=== PATIENT | male | born 1945 | race Caucasian/White ===

== ENCOUNTER 2020-09-17 19:05 | Inpatient (IN) | payer MEDICARE, OTHER ==
[~2020-09-17] VITALS: Ht 180.3 cm; Wt 97.6 kg
[2020-09-17 19:34] LABS: BASOPHILS % (AUTO) 0 % (0-10); EOSINOPHILS % (AUTO) 0 % (0-10); HEMATOCRIT 48 % (40-54); HEMOGLOBIN 14.8 G/DL (13.3-17.7); LYMPHOCYTES # (AUTO) 1.3 X 10^3 (1.0-4.0); LYMPHOCYTES % (AUTO) 12 % (12-44); MEAN CORPUSCULAR HEMOGLOBIN 29 PG (25-34); MEAN CORPUSCULAR HGB CONC 31 G/DL (32-36); MEAN CORPUSCULAR VOLUME 92 FL (80-99); MEAN PLATELET VOLUME 12.3 FL (7.4-10.4); MONOCYTES # (AUTO) 0.8 X 10^3 (0.0-1.0); MONOCYTES % (AUTO) 7 % (0-12); NEUTROPHILS % (AUTO) 80 % (42-75); WHITE BLOOD COUNT 11.2 10^3/uL (4.3-11.0)
--- NOTE | 2020-09-17 19:38 | ED Dyspnea ---
General Chief Complaint: Respiratory Problems Stated Complaint: SOA Source of Information: Patient, EMS History of Present Illness Date Seen by Provider: Sep 17, 2020 Time Seen by Provider: 19:05 Initial Comments 74-year-old male presenting from home by EMS after having increasing shortness of breath this afternoon. He has a history of COPD and emphysema and is oxygen dependent at home. He usually uses 2 L/min all the time however this afternoon that was not enough. He was working hard to breathe and felt more short of breath than normal. EMS was activated and on arrival they found him diaphoretic and pale working hard to breathe. They increased his oxygen up to 4 L/min and gave him a breathing treatment as well as 125 mg of Solu-Medrol IV. He feels like he has increased congestion to cough up but has not noticed any change in color to the congestion and phlegm. He denies any fever or chills. He has not been able to do his normal activities such as walking down the hallway to the bathroom without getting winded and out of breath. He denies any ill contacts or travel. Severity: Severe Activities at Onset: Activity (normal activities of walking down the hallway to the bathroom at home) Prior Episodes/Possible Cause: Chronic Episodes (chronic COPD) Modifying Factors: Worse With Activity; Improves With Oxygen, Improves With Rest Associated Symptoms: Anxiety, Chest Pain, Cough, Edema, Fever, Lightheadedness, Pain, Weakness (general), Wheezing Allergies and Home Medications Allergies Coded Allergies: Penicillins (Verified Allergy, Unknown, 09/17/20) Patient Home Medication List Home Medication List Reviewed: Yes Review of Systems Review of Systems Constitutional: No chills; diaphoresis (when he was working hard to breath on EMS arrival); No fever EENTM: No epistaxis, No nose congestion Respiratory: cough, dyspnea on exertion; No hemoptysis; short of breath; No stridor; wheezing Cardiovascular: No chest pain Gastrointestinal: No abdominal pain, No nausea, No vomiting Genitourinary: no symptoms reported Musculoskeletal: no symptoms reported Skin: No rash Psychiatric/Neurological: Anxiety Endocrine: No Symptoms Reported Hematologic/Lymphatic: No Symptoms Reported Past [id number] Hx Past Med/Social Hx: Reviewed Nursing Past Med/Soc Hx Patient Social History Alcohol Use: Denies Use Smoking Status: Former Smoker 2nd Hand Smoke Exposure: No Recent Hopitalizations: No Seasonal Allergies Seasonal Allergies: No Past Medical History Surgeries: Yes Orthopedic Respiratory: Yes COPD, Emphysema Cardiac: No Neurological: No Genitourinary: No Gastrointestinal: No Musculoskeletal: No Endocrine: No HEENT: No Cancer: No Psychosocial: No Integumentary: No Blood Disorders: No Physical Exam Vital Signs Vital Signs - First Documented 09/17/20 09/17/20 09/17/20 19:15 19:29 21:30 Temp 36.3 Pulse 110 Resp 20 B/P (MAP) 121/94 Pulse Ox 97 O2 Delivery Nasal Cannula O2 Flow Rate 4.00 Capillary Refill : Height, Weight, BMI Height: '" Weight: lbs. oz. 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) Neurologic/Psychiatric: Alert, Oriented x3, Normal Mood/Affect, motor tune up specialist II-XII Norm as Tested Skin: Normal Color, Warm/Dry Focused Exam Lactate Level 09/17/20 19:21: Lactic Acid Level 2.29*H Lactic Acid Level Laboratory Tests Test 09/17/20 19:21 Lactic Acid Level 2.29 MMOL/L (0.50-2.00) *H Progress/Results/Core Measures Results/Orders Lab Results Laboratory Tests Test 09/17/20 19:21 09/17/20 19:40 Range/Units White Blood Count 11.2 H 4.3-11.0 10^3/uL Red Blood Count 5.19 4.35-5.85 10^6/uL Hemoglobin 14.8 13.3-17.7 G/DL Hematocrit 48 40-54 % Mean Corpuscular Volume 92 80-99 FL Mean Corpuscular Hemoglobin 29 25-34 PG Mean Corpuscular Hemoglobin Concent 31 L 32-36 G/DL Red Cell Distribution Width 14.6 H 10.0-14.5 % Platelet Count 25 *L 130-400 10^3/uL Mean Platelet Volume 12.3 H 7.4-10.4 FL Immature Granulocyte % (Auto) 0 % Neutrophils (%) (Auto) 80 H 42-75 % Lymphocytes (%) (Auto) 12 12-44 % Monocytes (%) (Auto) 7 0-12 % Eosinophils (%) (Auto) 0 0-10 % Basophils (%) (Auto) 0 0-10 % Neutrophils # (Auto) 9.0 H 1.8-7.8 X 10^3 Lymphocytes # (Auto) 1.3 1.0-4.0 X 10^3 Monocytes # (Auto) 0.8 0.0-1.0 X 10^3 Eosinophils # (Auto) 0.0 0.0-0.3 10^3/uL Basophils # (Auto) 0.0 0.0-0.1 10^3/uL Immature Granulocyte # (Auto) 0.0 0.0-0.1 10^3/uL Neutrophils % (Manual) 82 % Lymphocytes % (Manual) 8 % Monocytes % (Manual) 8 % Eosinophils % (Manual) 1 % Basophils % (Manual) 1 % Platelet Estimate DECREASED Prothrombin Time 15.2 H 12.2-14.7 SEC INR Comment 1.2 0.8-1.4 Activated Partial Thromboplast Time 20 L 24-35 SEC Sodium Level 141 135-145 MMOL/L Potassium Level 4.7 3.6-5.0 MMOL/L Chloride Level 104 98-107 MMOL/L Carbon Dioxide Level 24 21-32 MMOL/L Anion Gap 13 5-14 MMOL/L Blood Urea Nitrogen 18 7-18 MG/DL Creatinine 1.06 0.60-1.30 MG/DL Estimat Glomerular Filtration Rate > 60 BUN/Creatinine Ratio 17 Glucose Level 164 H 70-105 MG/DL Lactic Acid Level 2.29 *H 0.50-2.00 MMOL/L Calcium Level 9.1 8.5-10.1 MG/DL Corrected Calcium 9.1 8.5-10.1 MG/DL Total Bilirubin 1.3 H 0.1-1.0 MG/DL Aspartate Amino Transf (AST/SGOT) 28 5-34 U/L Alanine Aminotransferase (ALT/SGPT) 18 0-55 U/L Alkaline Phosphatase 111 40-136 U/L Troponin I 0.91 *H <0.30 NG/ML C-Reactive Protein 1.17 H <0.50 MG/DL Pro-B-Type Natriuretic Peptide 2216.0 H <75.0 PG/ML Total Protein 6.9 6.4-8.2 GM/DL Albumin 4.0 3.2-4.5 GM/DL Blood Gas Puncture Site WRIST Blood Gas Patient Temperature 36.3 Arterial Blood pH 7.40 7.37-7.43 Arterial Blood Partial Pressure CO2 38 35-45 MMHG Arterial Blood Partial Pressure O2 137 H 79-93 MMHG Arterial Blood HCO3 24 23-27 MMOL/L Arterial Blood Total CO2 24.7 21.0-31.0 MMOL/L Arterial Blood Oxygen Saturation 99 94-100 % Arterial Blood Base Excess -1.1 -2.5-2.5 MMOL/L Randal Test NEGATIVE Blood Gas Ventilator Setting NO Blood Gas Inspired Oxygen 4 L My Orders Orders - MILLIE NEAL MD Monitor-Rhythm Ecg Trace Only (09/17/20 19:21) Cbc With Automated Diff (09/17/20 19:21) Comprehensive Metabolic Panel (09/17/20 19:21) Crp Fs (09/17/20 19:21) Troponin I Fs (09/17/20 19:21) Protime With Inr (09/17/20 19:21) Partial Thromboplastin Time (09/17/20 19:21) Ekg Tracing (09/17/20 19:21) Arterial Blood Gas (09/17/20 19:21) Blood Culture (09/17/20 19:21) Lactic Acid Analyzer (09/17/20 19:21) Chest 1 View Ap/Pa Only (09/17/20 19:21) O2 (09/17/20 19:21) Sputum Culture (09/17/20 19:25) Manual Differential (09/17/20 19:21) Aspirin Chewable Tablet (Baby Aspirin Ch (09/17/20 19:59) Ns Iv 1000 Ml (Sodium Chloride 0.9%) (09/17/20 19:59) Probnp Fs (09/17/20 20:28) Vital Signs/I&O 09/17/20 09/17/20 09/17/20 19:15 19:29 21:30 Temp 36.3 Pulse 110 101 Resp 20 18 B/P (MAP) 121/94 Pulse Ox 97 97 95 O2 Delivery Nasal Cannula Nasal Cannula Nasal Cannula O2 Flow Rate 4.00 4.00 4.00 Progress Progress Note #1: Progress Note Cardiac night monitor for tachycardia and shortness of breath to monitor his heart rate and rhythm. Obtain ECG, CXR, labs, blood cultures with lactic acid, ABG. Continue with supplemental oxygen at 4 Lpm. Progress Note #2: Time: :46 Progress Note Notified that labs show platelets are low at 25K. WBC 11.2, Hgb 14.8. ECG shows sinus tachycardia with old appearing Q waves and no prior tracings for comparison. CXR read as COPD changes without infiltrate. Progress Note #3: Time: :19 Progress Note lab shows elevated troponin to 0.91. He also has elevated Lactic acid to 2.29. The lactic acid is likely due to hyperventilating and dehydration. His troponin is likely due to stress and strain from COPD and increased work of breathing and episodes of hypoxia while working hard to breath as he has no know history of cardiac disease and was not having chest pain but only chest tightness from his COPD. Even though he has low platelets will give a single dose of Aspirin 324 mg po and check with pt to ensure he is ok with going to [facility] for care with [facility]. He stated he was ok with going to [place]. D/w Dr. Khan from Cardiology at 2019 and he agreed with consult and requested proBNP on patient as well as an Echocardiogram in am. He would like hematology to consult about the low platelets as he would not be a safe candidate for procedures until the platelets are over 100K. Thought of PE brought up but with him having ABG with normal pH 7.4, pCO2 40, pO2 137 on 4 Lpm it seemed like he was oxygenating well so will hold off on CT angiogram. He does not have risk factor for PE and with low platelet count if he did have a PE trying to treat one would be difficult as well. 2041 d/w Dr. Otoole for [facility] and will admit for COPD exacerbation and serial troponins. Consult Heme/Onc as well as Cardiology. Continue withi Solumedrol 125 mg IV q 8 hours for now and RT MAT protocol. Since he has thrombocytopenia will hold with the single dose of 324 mg aspirin given here in ED. Initial ECG Impression Date: Sep 17, 2020 Initial ECG Impression Time: 19:31 Initial ECG Rate: 111 Initial ECG Rhythm: S.Tach Initial ECG Comparisson: No Previous ECG Available Comment Sinus tachycardia with a heart rate of 111 bpm. ND interval [address] elevation. QT interval 353 ms with a QTc interval 480 ms. Old appearing Inferior and lateral Q waves. No prior tracings in the system for comparison. Diagnostic Imaging Diagonstic Imaging: Xray Plain Films/CT/US/NM/MRI: chest Comments NAME: CLAY BROOKS REC#: [id number] PT STATUS: REG ER : 1945 PHYSICIAN: MILLIE NEAL MD ADMIT DATE: 09/17/20/ER FS Draft Date of Exam:09/17/20 CHEST 1 VIEW AP/PA ONLY INDICATION: Shortness of breath. COMPARISON: None. EXAMINATION: Single view of the chest. FINDINGS: Hyperexpansion compatible with COPD. Otherwise, lungs are clear. The heart is normal. There is no pneumothorax but osseous structures are stable. IMPRESSION: COPD without infiltrate. Dictated on workstation # [id number] Dict: 09/17/201934 Trans: 09/17/201940 [facility] [id number] Interpreted by: REBEKA PIERCE Electronically signed by: Departure Communication (Admissions) Time/Spoke to Admitting Phy: 20:42 d/w Dr. Otoole for [facility] since pt follows with Dr. Vora. Will admit for COPD exacerbation and have Cardiology and Hematology consult along about elevated troponin and platelets. Since he has no infiltrate on CXR and no purulent sputum will hold off on antibiotics for now. Time/Spoke to Consulting Phy: 20:19 d/w Dr. Khan for Cardiology and will follow along but until platelets over 100K will need to hold off on any procedures. Impression Primary Impression: COPD with exacerbation Additional Impressions: Thrombocytopenia Non-STEMI (non-ST elevated myocardial infarction) Disposition: 30 STILL A PATIENT Condition: Stable Admissions Decision to Admit Reason: Admit from ER (General) Decision to Admit/Date: Sep 17, 2020 Time/Decision to Admit Time: 20:42 Departure-Patient Inst. Referrals: NO,LOCAL PHYSICIAN (PCP/Family) Primary Care Physician MILLIE NEAL MD Sep 17, 2020 19:38
--- NOTE | 2020-09-17 19:42 | Diagnostic Imaging Report ---
INDICATION: Shortness of breath. COMPARISON: None. EXAMINATION: Single view of the chest. FINDINGS: Hyperexpansion compatible with COPD. Otherwise, lungs are clear. The heart is normal. There is no pneumothorax but osseous structures are stable. IMPRESSION: COPD without infiltrate. Dictated by: Dictated on workstation # [id number]
[2020-09-17 19:43] LABS: PLATELET COUNT 25 10^3/uL (130-400)
[2020-09-17 19:47] LABS: INR 1.2 (0.8-1.4); PROTHROMBIN TIME PATIENT 15.2 SEC (12.2-14.7)
[2020-09-17 19:50] LABS: ABG BASE EXCESS -1.1 MMOL/L (-2.5-2.5); ABG OXYGEN SATURATION 99 % (94-100); ABG PCO2 38 MMHG (35-45); ABG PO2 137 MMHG (79-93); ABG TCO2 24.7 MMOL/L (21.0-31.0)
[2020-09-17 19:52] LABS: PATIENT TEMP 36.3; VENTILATOR NO
[2020-09-17 19:53] LABS: ALLENS TEST NEGATIVE; INSPIRED O2 4 L
[2020-09-17 19:54] LABS: CHLORIDE 104 MMOL/L (98-107); POTASSIUM 4.7 MMOL/L (3.6-5.0); SODIUM 141 MMOL/L (135-145)
[2020-09-17 19:55] LABS: ALANINE AMINOTRANSFERASE 18 U/L (0-55); ALKALINE PHOSPHATASE 111 U/L (40-136); BILIRUBIN,TOTAL 1.3 MG/DL (0.1-1.0); BUN/CREATININE RATIO 17; CALCIUM 9.1 MG/DL (8.5-10.1); CARBON DIOXIDE 24 MMOL/L (21-32); CREATININE SERUM 1.06 MG/DL (0.60-1.30); GFR ESTIMATED > 60; GLUCOSE 164 MG/DL (70-105)
[2020-09-17] MEDS ORDERED: POTA10TA36 PO (19:56)
[2020-09-17] MEDS ORDERED: LISI-729 PO (19:56)
[2020-09-17] MEDS ORDERED: GBPN600T PO (19:56)
[2020-09-17] MEDS ORDERED: ALBUTEROL (19:56)
[2020-09-17 19:58] LABS: TOTAL PROTEIN 6.9 GM/DL (6.4-8.2)
[2020-09-17] MEDS ORDERED: NS IV 1000 ML 1,000 ML IV STA (19:59)
[2020-09-17] MEDS ORDERED: ASPIRIN 81 MG CHEW (CHILDREN'S ASA) PO STA (19:59)
[2020-09-17 20:44] LABS: BASOPHILS % (MANUAL) 1 %; EOSINOPHILS % (MANUAL) 1 %; LYMPHOCYTES % (MANUAL) 8 %; MONOCYTES % (MANUAL) 8 %; NEUTROPHILS % (MANUAL) 82 %; PLATELET ESTIMATE DECREASED
[2020-09-18] MEDS: methylPREDNISolone 125 MG (Solu-MEDROL) VIAL IV SCH ×4 (00:39→23:28)
[2020-09-18] MEDS: NS IV 1000 ML 1,000 ML IV SCH ×3 (00:40→20:20)
[2020-09-18 01:28] VITALS: BP 106/76
[2020-09-18] MEDS ORDERED: RT-ALBUTEROL SULF 2.5 MG/3 ML PRE-MIX VIAL INH PRN (02:00)
[2020-09-18] MEDS: RT-ALBUTEROL SULF 2.5 MG/3 ML PRE-MIX VIAL INH SCH ×2 (02:46→06:40)
[2020-09-18 07:19] VITALS: BP 127/86
[2020-09-18 07:22] LABS: BASOPHILS % (AUTO) 0 % (0-10); EOSINOPHILS % (AUTO) 0 % (0-10); HEMATOCRIT 44 % (40-54); HEMOGLOBIN 13.3 g/dL (13.3-17.7); LYMPHOCYTES # (AUTO) 0.5 10^3/uL (1.0-4.0); LYMPHOCYTES % (AUTO) 7 % (12-44); MEAN CORPUSCULAR HEMOGLOBIN 28 pg (25-34); MEAN CORPUSCULAR HGB CONC 30 g/dL (32-36); MEAN CORPUSCULAR VOLUME 92 fL (80-99); MEAN PLATELET VOLUME 10.9 fL (9.0-12.2); MONOCYTES # (AUTO) 0.1 10^3/uL (0.0-1.0); MONOCYTES % (AUTO) 1 % (0-12); NEUTROPHILS # (AUTO) 7.7 10^3/uL (1.8-7.8); NEUTROPHILS % (AUTO) 92 % (42-75); PLATELET COUNT 163 10^3/uL (130-400); WHITE BLOOD COUNT 8.4 10^3/uL (4.3-11.0)
[2020-09-18 07:31] LABS: ALBUMIN 3.5 GM/DL (3.2-4.5); CHLORIDE 110 MMOL/L (98-107); POTASSIUM 4.5 MMOL/L (3.6-5.0); SODIUM 142 MMOL/L (135-145)
[2020-09-18 07:32] LABS: CALCIUM 8.3 MG/DL (8.5-10.1)
[2020-09-18 07:33] LABS: GLUCOSE 176 MG/DL (70-105); TOTAL PROTEIN 6.3 GM/DL (6.4-8.2)
[2020-09-18 07:34] LABS: CARBON DIOXIDE 20 MMOL/L (21-32)
[2020-09-18 07:35] LABS: BILIRUBIN,TOTAL 0.9 MG/DL (0.1-1.0)
[2020-09-18 07:37] LABS: ALKALINE PHOSPHATASE 91 U/L (40-136); CREATININE SERUM 1.03 MG/DL (0.60-1.30); GFR ESTIMATED > 60
[2020-09-18 07:38] LABS: BUN/CREATININE RATIO 19
[2020-09-18 07:40] LABS: ALANINE AMINOTRANSFERASE 21 U/L (0-55)
[2020-09-18 07:45] LABS: BAND NEUTROPHILS 1 %; LYMPHOCYTES % (MANUAL) 7 %; MONOCYTES % (MANUAL) 1 %; NEUTROPHILS % (MANUAL) 91 %
[2020-09-18 07:46] LABS: RBC MORPH NORMAL
[2020-09-18] MEDS: KCL 10 MEQ TAB (MICRO K) PO SCH ×3 (08:55→17:35)
[2020-09-18] MEDS: GABAPENTIN 600 MG (NEURONTIN) TAB PO SCH ×3 (08:55→20:19)
[2020-09-18] MEDS: lisINopril 5 MG (PRINIVIL) TABLET PO SCH (08:55)
[2020-09-18] MEDS: ENOXAPARIN 40 MG/0.4 ML (LOVENOX) SYR SC SCH (09:31)
--- NOTE | 2020-09-18 10:09 | History & Physical-Hospitalist ---
History of Present Illness HPI/Chief Complaint 74-year-old male presenting from home by EMS after having increasing shortness of breath this afternoon. He has a history of COPD and emphysema and is oxygen dependent at home. He usually uses 2 L/min all the time however this afternoon that was not enough. He was working hard to breathe and felt more short of breath than normal. EMS was activated and on arrival they found him diaphoretic and pale working hard to breathe. They increased his oxygen up to 4 L/min and gave him a breathing treatment as well as 125 mg of Solu-Medrol IV. He feels like he has increased congestion to cough up but has not noticed any change in color to the congestion and phlegm. He denies any fever or chills. He has not been able to do his normal activities such as walking down the hallway to the bathroom without getting winded and out of breath. He denies any ill contacts or travel. Upon my arrival the patient reports that his shortness of breath started about 48 hours prior and got progressively worse with wheezing. He had an associated cough that was productive at times for a little bit of frothy sputum without blood. He denied any purulent sputum production and denied chest pain but did note some audible wheezing. He increase his oxygen to 3 L which was only of minimal benefit and presented to the emergency room. He reports that he has not been around anybody about his cats at home with no known Covid exposure. Rapid Covid testing is negative in the emergency room.He reports no known history of heart disease states that his brother is living in his 80s and there is no family history of heart disease. He reports he quit smoking in 2003 after about 80+ pack year smoking history. He has not had any recent admissions for pneumonia but has had a fair number of COPD exacerbations over the last several years that have been handled by IM steroids and antibiotics per his report. Date Seen 09/18/20 Time Seen by a Provider: 07:30 Attending Physician Carlos Donato MD PCP Corona Vora MD Referring Physician Date of Admission Sep 17, 2020 at 22:25 Home Medications & Allergies Home Medications Reviewed patient Home Medication Reconciliation performed by pharmacy medication reconciliations boiler technician and/or nursing. Patients Allergies have been reviewed. Allergies Allergies Coded Allergies Penicillins (Verified Allergy, Unknown, 09/17/20) Past Nuubhkq-Vepvat-Brwgmm Hx Past Med/Social Hx: Reviewed Nursing Past Med/Soc Hx, Reviewed and Corrections made Patient Social History Alcohol Use: Denies Use Recreational Drug Use: No Smoking Status: Former Smoker 2nd Hand Smoke Exposure: No Recent Foreign Travel: No Contact w/other who traveled: No Recent Hopitalizations: No Recent Infectious Disease Expo: No Immunizations Up To Date Date of Influenza Vaccine: Apr 28, 2020 Seasonal Allergies Seasonal Allergies: No Past Medical History Surgeries: Abdominal, Gallbladder, Orthopedic History of Blood Disorders: No Review of Systems Constitutional: see HPI Physical Exam Physical Exam Vital Signs Vital Signs - First Documented 09/17/20 09/17/20 09/17/20 19:15 19:29 21:30 Temp 36.3 Pulse 110 Resp 20 B/P (MAP) 121/94 Pulse Ox 97 O2 Delivery Nasal Cannula O2 Flow Rate 4.00 Capillary Refill : Less Than 3 Seconds Height, Weight, BMI Height: '" Weight: lbs. oz. kg; 27.56 BMI Method: General Appearance: Mild Distress Neck: Other (Decreased range of motion of the neck reportedly at this patient's baseline however) Respiratory: Chest Non Tender, No Accessory Muscle Use, No Respiratory Distress, Other (Patient does have evidence for prolonged expiratory phase most comfortable sitting upright leaning forward in his bed. Diminished breath sounds throughout no wheezing rales or rhonchi noted.) Cardiovascular: Regular Rate, Rhythm, No Edema, No Gallop, No JVD, No Murmur (Heart sounds distant however), Normal Peripheral Pulses Gastrointestinal: Normal Bowel Sounds, No Organomegaly, No Pulsatile Mass, Non Tender, Soft Extremity: No Pedal Edema Results Results/Procedures Labs Laboratory Tests 09/17/20 19:21 09/18/20 07:12 Patient resulted labs reviewed. Assessment/Plan Admission Diagnosis A/P 1. Acute COPD exacerbation no evidence for infection. Elevated lactate likely due to hypoxemia from COPD exacerbation. Considering some frothy sputum and hypoxemia congestive heart failure is in the differential will obtain echocardiography for further investigation. Patient Covid negative. Patient appears to be rapid responder to steroids well give another dose of Solu-Medrol today and switch to prednisone in the morning. 2. Patient has had no evidence for bleeding with urgent serum platelet count in the mid 20s yesterday and 160 here compatible with pseudohyponatremia will initiate Lovenox for DVT prophylaxis 40 mg subcu daily. Admission Status: Inpatient Order (span 2 midnights) Reason for Inpatient Admission: See admission diagnosis. CARLOS DONATO MD Sep 18, 2020 10:09
[2020-09-18] MEDS: RT-ALBUTEROL/IPRATROPIUM 3 ML (DUONEB) VIAL INH SCH ×4 (10:30→22:40)
--- NOTE | 2020-09-18 13:48 | Consultation-Cardiology ---
HPI-Cardiology Cardiology Consultation: Date of Consultation 09/18/20 Date of Admission Attending Physician Adalberto Otoole MD Admitting Physician Corona Vora MD Consulting Physician Meenakshi KHAN MD HPI: Time Seen by a Provider: 13:44 Chief Complaint: shortness of breath this is an elderly gentleman who presents for worsening shortness of breath. He has history of oxygen dependent COPD. EMS found him in respiratory distress. He was given IV steroids. He denies any fever. He denies any chest pain. He does have significant past smoking history. Denies any significant cardiac history. Pertinent family history is negative. on my history, he is still short of breath and cannot lie flat. Review of Systems-Cardiology Review of Systems Constitutional: As described under HPI; No As described under HPI, No no symptoms reported, No chills, No fever, No lightheadedness Eyes: No As described under HPI, No no symptoms reported, No blindness, No blurred vision, No contact lenses, No drainage, No decreased acuity, No foreign body sensation, No pain, No vision change Ears/Nose/Throat: No As described under HPI, No no symptoms reported, No chronic hearing loss, No ear discharge, No ear pain, No nasal drainage, No ulcerations Respiratory: No no symptoms reported; As described under HPI; No As described under HPI, No cough; orthopnea; No shortness of breath, No SOB with excertion Cardiovascular: No no symptoms reported; As described under HPI; No As described under HPI, No chest pain, No edema, No irregular heart rate, No lightheadedness, No palpitations Gastrointestinal: No no symptoms reported, No As described under HPI, No abdomen distended, No abdominal pain, No blood streaked bowels, No constipation, No diarrhea, No nausea, No vomiting, No stool coloration changes Genitourinary: No As described under HPI, No burning, No dysuria, No discharge, No frequency, No flank pain, No hematuria, No urgency Skin: No rash, No skin related problems, No ulcerations Psychiatric/Neurological: No anxiety, No depression, No seizure, No focal weakness, No syncope Hematologic: No bleeding abnormalities SXR-Tzqqxz-Wzmriq Hx Patient Social History Smoking Status: Former Smoker 2nd Hand Smoke Exposure: No Have you traveled recently?: No Alcohol Use?: No Pt feels they are or have been: No Immunizations Up To Date Date of Influenza Vaccine: Apr 28, 2020 Past Medical History PMH As described under Assessment. Allergies and Home Medications Allergies Coded Allergies: Penicillins (Verified Allergy, Unknown, 09/17/20) Patient Home Medication List Home Medication List Reviewed: Yes Physical Exam-Cardiology Physical Exam Vital Signs/I&O 09/18/20 09/18/20 09/18/20 09/18/20 02:30 04:09 06:40 07:00 Temp 36.4 Pulse 87 82 Resp 22 B/P (MAP) 127/86 (100) Pulse Ox 96 94 96 O2 Delivery Nasal Cannula Nasal Cannula Nasal Cannula O2 Flow Rate 4.00 4.00 4.00 09/18/20 09/18/20 09/18/20 09/18/20 07:19 08:53 09:00 10:30 Temp 36.3 36.5 Pulse 96 96 Resp 26 B/P (MAP) 141/98 (112) Pulse Ox 96 96 96 98 O2 Delivery Nasal Cannula Nasal Cannula Nasal Cannula O2 Flow Rate 4.00 4.00 5.00 09/18/20 09/18/20 11:21 12:46 Temp 36.3 Pulse 90 90 Resp 20 B/P (MAP) 133/82 (99) Pulse Ox 96 O2 Delivery Nasal Cannula O2 Flow Rate 4.00 09/18/20 00:00 Intake Total 1000 ml Balance 1000 ml Capillary Refill : Less Than 3 Seconds Constitutional: appears stated age, apparent distress, well-developed, well- nourished HEENT: PERRL; No discharge; hearing is well preserved, oral hygience is good; No ulceration, No xanthelasmas are seen Neck: No carotid bruit; carotid pulses are 2 + bilaterally Respiratory: accessory muscle use, respiratory distress, other (decreased breath sounds bilaterally.) Cardiovascular: regular rate-rhythm, S1 and S2 Gastrointestinal: soft, audible bowel sounds; No spleenomegaly Rectal: deferred Extremities: normal range of motion, non-tender, normal inspection; No clubbing, No cyanosis; no lower extremity edema bilateral; No significant edema Neurologic/Psychiatric: no motor/sensory deficits, alert, normal mood/affect, oriented x 3, power is 5/5 both on sides Skin: normal color; No rash, No ulcerations Data Review Labs Laboratory Tests 09/17/20 19:21: White Blood Count 11.2H, Red Blood Count 5.19, Hemoglobin 14.8, Hematocrit 48, Mean Corpuscular Volume 92, Mean Corpuscular Hemoglobin 29, Mean Corpuscular Hemoglobin Concent 31L, Red Cell Distribution Width 14.6H, Platelet Count 25*L, Mean Platelet Volume 12.3H, Immature Granulocyte % (Auto) 0, Neutrophils (%) (Auto) 80H, Lymphocytes (%) (Auto) 12, Monocytes (%) (Auto) 7, Eosinophils (%) (Auto) 0, Basophils (%) (Auto) 0, Neutrophils # (Auto) 9.0H, Lymphocytes # (Auto) 1.3, Monocytes # (Auto) 0.8, Eosinophils # (Auto) 0.0, Basophils # (Auto) 0.0, Immature Granulocyte # (Auto) 0.0, Neutrophils % (Manual) 82, Lymphocytes % (Manual) 8, Monocytes % (Manual) 8, Eosinophils % (Manual) 1, Basophils % (Manual) 1, Platelet Estimate DECREASED, Prothrombin Time 15.2H, INR Comment 1.2, Activated Partial Thromboplast Time 20L, Sodium Level 141, Potassium Level 4.7, Chloride Level 104, Carbon Dioxide Level 24, Anion Gap 13, Blood Urea Nitrogen 18, Creatinine 1.06, Estimat Glomerular Filtration Rate > 60, BUN/Creatinine Ratio 17, Glucose Level 164H, Lactic Acid Level 2.29*H, Calcium Level 9.1, Corrected Calcium 9.1, Total Bilirubin 1.3H, Aspartate Amino Transf (AST/SGOT) 28, Alanine Aminotransferase (ALT/SGPT) 18, Alkaline Phosphatase 111, Troponin I 0.91*H, C-Reactive Protein 1.17H, Pro-B-Type Natriuretic Peptide 2216.0H, Total Protein 6.9, Albumin 4.0 09/17/20 19:40: Blood Gas Puncture Site WRIST, Blood Gas Patient Temperature 36.3, Arterial Blood pH 7.40, Arterial Blood Partial Pressure CO2 38, Arterial Blood Partial Pressure O2 137H, Arterial Blood HCO3 24, Arterial Blood Total CO2 24.7, Arterial Blood Oxygen Saturation 99, Arterial Blood Base Excess -1.1, Randal Test NEGATIVE, Blood Gas Ventilator Setting NO, Blood Gas Inspired Oxygen 4 L 09/17/20 23:50: Coronavirus 2019 ([facility]) Negative 09/17/20 23:54: Lactic Acid Level 2.35*H, Troponin I 0.732*H 09/18/20 02:50: Lactic Acid Level 2.54*H, Troponin I 0.602*H 09/18/20 07:12: Lactic Acid Level 1.55, White Blood Count 8.4, Red Blood Count 4.80, Hemoglobin 13.3, Hematocrit 44, Mean Corpuscular Volume 92, Mean Corpuscular Hemoglobin 28, Mean Corpuscular Hemoglobin Concent 30L, Red Cell Distribution Width 14.3, Platelet Count 163, Mean Platelet Volume 10.9, Immature Granulocyte % (Auto) 1, Neutrophils (%) (Auto) 92H, Lymphocytes (%) (Auto) 7L, Monocytes (%) (Auto) 1, Eosinophils (%) (Auto) 0, Basophils (%) (Auto) 0, Neutrophils # (Auto) 7.7, Lymphocytes # (Auto) 0.5L, Monocytes # (Auto) 0.1, Eosinophils # (Auto) 0.0, Bas ophils # (Auto) 0.0, Immature Granulocyte # (Auto) 0.0, Neutrophils % (Manual) 91, Lymphocytes % (Manual) 7, Monocytes % (Manual) 1, Band Neutrophils 1, Blood Morphology Comment NORMAL, Sodium Level 142, Potassium Level 4.5, Chloride Level 110H, Carbon Dioxide Level 20L, Anion Gap 12, Blood Urea Nitrogen 20H, Creatinine 1.03, Estimat Glomerular Filtration Rate > 60, BUN/Creatinine Ratio 19, Glucose Level 176H, Calcium Level 8.3L, Corrected Calcium 8.7, Total Bilirubin 0.9, Aspartate Amino Transf (AST/SGOT) 22, Alanine Aminotransferase (ALT/SGPT) 21, Alkaline Phosphatase 91, Total Protein 6.3L, Albumin 3.5 A/P-Cardiology Assessment/Admission Diagnosis Acute respiratory failure, severe COPD with exacerbation, Positive cardiac enzymes, Elevated BNP Plan Acute respiratory failure, severe COPD with exacerbation, defer to the primary team. Positive cardiac enzymes, treat as non-STEMI with aspirin, low molecular weight heparin. Add Plavix. Echocardiogram. Patient cannot lie flat, coronary angiography when more stable. Elevated BNP Thank you for your consultation. Please call me if you have any questions. Caleb Khan MD, FACP, FACC, FSCAI, FHRS, CCDS Interventional Cardiology Cardiac Electrophysiology Vascular Medicine and Endovascular Interventions Meenakshi KHAN MD Sep 18, 2020 13:48
[2020-09-18] MEDS: ASPIRIN E.C. 325 MG (ECOTRIN) TABLET PO PRN ×2 (15:48→23:25)
[2020-09-18] MEDS ORDERED: LOPERAMIDE 2 MG (IMODIUM) TABLET PO PRN (17:45)
[2020-09-18] MEDS ORDERED: LOPERAMIDE 2 MG (IMODIUM) TABLET PO ONE (17:45)
[2020-09-19] MEDS: RT-ALBUTEROL/IPRATROPIUM 3 ML (DUONEB) VIAL INH SCH ×6 (02:35→22:13)
[2020-09-19] MEDS: NS IV 1000 ML 1,000 ML IV SCH (06:01)
[2020-09-19] MEDS: methylPREDNISolone 125 MG (Solu-MEDROL) VIAL IV SCH ×3 (08:40→23:57)
[2020-09-19] MEDS: lisINopril 5 MG (PRINIVIL) TABLET PO SCH (08:40)
[2020-09-19] MEDS: CLOPIDOGREL 75 MG (PLAVIX) TABLET PO SCH (08:40)
[2020-09-19] MEDS: GABAPENTIN 600 MG (NEURONTIN) TAB PO SCH ×3 (08:40→20:54)
[2020-09-19] MEDS: KCL 10 MEQ TAB (MICRO K) PO SCH ×2 (08:40→18:13)
[2020-09-19] MEDS: ENOXAPARIN 40 MG/0.4 ML (LOVENOX) SYR SC SCH (08:41)
[2020-09-19 09:48] LABS: BASOPHILS % (AUTO) 0 % (0-10); EOSINOPHILS % (AUTO) 0 % (0-10); HEMATOCRIT 42 % (40-54); HEMOGLOBIN 12.8 g/dL (13.3-17.7); LYMPHOCYTES # (AUTO) 0.4 10^3/uL (1.0-4.0); LYMPHOCYTES % (AUTO) 3 % (12-44); MEAN CORPUSCULAR HEMOGLOBIN 28 pg (25-34); MEAN CORPUSCULAR HGB CONC 30 g/dL (32-36); MEAN CORPUSCULAR VOLUME 92 fL (80-99); MEAN PLATELET VOLUME 10.7 fL (9.0-12.2); MONOCYTES # (AUTO) 0.6 10^3/uL (0.0-1.0); MONOCYTES % (AUTO) 5 % (0-12); NEUTROPHILS # (AUTO) 11.4 10^3/uL (1.8-7.8); NEUTROPHILS % (AUTO) 91 % (42-75); PLATELET COUNT 160 10^3/uL (130-400); WHITE BLOOD COUNT 12.5 10^3/uL (4.3-11.0)
[2020-09-19 10:10] LABS: ALBUMIN 3.3 GM/DL (3.2-4.5); BILIRUBIN,TOTAL 0.5 MG/DL (0.1-1.0); CALCIUM 8.5 MG/DL (8.5-10.1); CREATININE SERUM 1.2 MG/DL (0.60-1.30); TOTAL PROTEIN 5.9 GM/DL (6.4-8.2)
--- NOTE | 2020-09-19 10:11 | Cardiology Progress Note ---
Subjective Date Seen by Provider: Sep 19, 2020 Time Seen by Provider: 10:09 Subjective/Events-last exam Patient is laying down in bed, still having some shortness of breath but reporting improvement, denied any chest pain Review of Systems General: No Chills, No Night Sweats; Fatigue; No Malaise, No Appetite, No Other HEENT: No Head Aches, No Visual Changes, No Eye Pain, No Ear Pain, No Dysphasia, No Sinus Congestion, No Post Nasal Drip, No Sore Throat, No Other Pulmonary: Dyspnea, Cough; No Pleuritic Chest Pain, No Other Cardiovascular: No: Chest Pain, Palpitations, Orthopnea, Paroxysmal Noc. Dyspnea, Edema, Lt Headedness, Other Focused Exam Lactate Level 09/17/20 23:54: Lactic Acid Level 2.35*H 09/18/20 02:50: Lactic Acid Level 2.54*H 09/18/20 07:12: Lactic Acid Level 1.55 Objective-Cardiology Exam Last Set of Vital Signs Vital Signs 09/19/20 08:00 Temp 36.4 Pulse 97 Resp 18 B/P (MAP) 126/80 (95) Pulse Ox 96 O2 Delivery Nasal Cannula O2 Flow Rate 2.00 Capillary Refill : Less Than 3 Seconds I&O Intake and Output 09/18/20 23:59 Intake Total 1675 ml Output Total 700 ml Balance 975 ml Intake Oral 675 ml IV Total 1000 ml Output Urine Total 700 ml General: Alert, Oriented X3, Cooperative HEENT: Atraumatic, PERRLA Neck: Supple, No JVD, No Thyromegaly Lungs: Normal Air Movement, Other (bilateral rhonchi) Heart: Regular Rate, Normal S1, Normal S2, No Murmurs Abdomen: Normal Bowel Sounds, Soft, No Tenderness, No Hepatosplenomegaly, No Masses Extremities: No Clubbing, No Cyanosis, No Edema, Normal Pulses, No Tenderness/Swelling Skin: No Rashes, No Breakdown, No Significant Lesion Neuro: Normal Gait, Normal Speech, Strength at 5/5 X4 Ext, Normal Tone, Sensation Intact Psych/Mental Status: Mental Status NL, Mood NL Results Lab Laboratory Tests 09/19/20 09:45 A/P-Cardiology Admission Diagnosis Acute exacerbation of COPD Acute respiratory failure Type II myocardial infarction Hypertension Assessment/Plan Acute exacerbation of COPD, acute respiratory failure, improving, history of oxygen dependency at home using 2 L nasal cannula, the management by primary care physician Mild elevation in troponin, probably type II myocardial infarction secondary to severe hypoxemia. Maintained on Lovenox and Plavix. Discussed with the patient the management plan recommended risk stratification in the future as an outpatient once he is more stable, we'll consider stress testing versus cardiac catheterization in the future. Thrombocytopenia, probably secondary to lab error, repeat CBC showed normal platelets Hypertension, maintained on lisinopril Okay for discharge from cardiology standpoint, arrange for follow-up as an outpatient DAYAMI MCCABE MD Sep 19, 2020 10:11
--- NOTE | 2020-09-19 11:59 | Progress Note - Hospitalist ---
TRISTEN SALDANA MED STUDENT 09/19/20 1158: Subjective HPI/CC On Admission 74-year-old male presenting from home by EMS after having increasing shortness of breath this afternoon. He has a history of COPD and emphysema and is oxygen dependent at home. He usually uses 2 L/min all the time however this afternoon that was not enough. He was working hard to breathe and felt more short of breath than normal. EMS was activated and on arrival they found him diaphoretic and pale working hard to breathe. They increased his oxygen up to 4 L/min and gave him a breathing treatment as well as 125 mg of Solu-Medrol IV. He feels like he has increased congestion to cough up but has not noticed any change in color to the congestion and phlegm. He denies any fever or chills. He has not been able to do his normal activities such as walking down the hallway to the bathroom without getting winded and out of breath. He denies any ill contacts or travel. Upon my arrival the patient reports that his shortness of breath started about 48 hours prior and got progressively worse with wheezing. He had an associated cough that was productive at times for a little bit of frothy sputum without blood. He denied any purulent sputum production and denied chest pain but did note some audible wheezing. He increase his oxygen to 3 L which was only of minimal benefit and presented to the emergency room. He reports that he has not been around anybody about his cats at home with no known Covid exposure. Rapid Covid testing is negative in the emergency room.He reports no known history of heart disease states that his brother is living in his 80s and there is no family history of heart disease. He reports he quit smoking in 2003 after about 80+ pack year smoking history. He has not had any recent admissions for pneumonia but has had a fair number of COPD exacerbations over the last several years that have been handled by IM steroids and antibiotics per his report. Subjective/Events-last exam The pt complained of a cough today more so than yesterday but denied any phlegm. He denied any N/V. His last BM was before being admitted and was diarrhea like. He uses a catheter and reported not difficulty but would like it removed due to discomfort and pain. He has ambulated once. He wanted to know when he could be discharged. Labs were ordered for this morning, results pending. Review of Systems Pulmonary: Cough Gastrointestinal: No: Nausea, Vomiting Focused Exam Lactate Level 09/17/20 23:54: Lactic Acid Level 2.35*H 09/18/20 02:50: Lactic Acid Level 2.54*H 09/18/20 07:12: Lactic Acid Level 1.55 Objective Exam Vital Signs Vital Signs Date Time Temp Pulse Resp B/P (MAP) Pulse Ox O2 Delivery O2 Flow Rate FiO2 09/19/20 11:00 93 Nasal Cannula 2.00 09/19/20 08:00 36.4 97 18 126/80 (95) Capillary Refill : Less Than 3 Seconds General Appearance: No Apparent Distress, WD/WN Respiratory: Chest Non Tender, Lungs Clear, Normal Breath Sounds, No Accessory Muscle Use, No Respiratory Distress Cardiovascular: Regular Rate, Rhythm Back: Other (flaking of skin) Neurologic/Psychiatric: Alert, Oriented x3, Normal Mood/Affect Skin: Other (flaking of skin on back) Results/Procedures Lab Laboratory Tests 09/19/20 09:45 Patient resulted labs reviewed. Assessment/Plan Assessment and Plan Assess & Plan/Chief Complaint 1. COPD exacerbation without infection - on prednisone 2. positive cardiac markers - followed by cardiology. on ASA, LMWH, and plavix. Diagnosis/Problems Diagnosis/Problems (1) Non-STEMI (non-ST elevated myocardial infarction) Status: Acute (2) COPD with exacerbation Status: Acute ESTHELA HERNANDEZ DO 09/20/20 0539: Subjective HPI/CC On Admission Date Seen by Provider: Sep 19, 2020 Time Seen by Provider: 10:00 Subjective/Events-last exam Pt doing a little better today Elevated troponin pt on Aspirin, Plavix, and Lovenox Two liters of home O2 on a chronic basis Stopped smoking in 2003 but now has exacerbation of COPD Labs ordered and I did review those Rivera cath will be discontinued along with heplocking IV fluid PT, OT and Rehab eval Review of Systems General: Fatigue Objective Exam General Appearance: No Apparent Distress, WD/WN, Chronically ill Respiratory: Accessory Muscle Use, Decreased Breath Sounds Cardiovascular: Regular Rate, Rhythm Assessment/Plan Assessment and Plan Assess & Plan/Chief Complaint Assessment: AECOPD Weakness Type 2 ND HTN O2 dependency Plan: Monitor O2 Supportive care IRF PT OT Supervisory-Addendum Brief Verification & Attestation Participated in pt care: history, MDM, physical Personally performed: exam, history, MDM, supervision of care Care discussed with: Medical Student Procedures: n/a Results interpretation: Verified all documentation Verification and Attestation of Medical Student E/M Service A medical student performed and documented this service in my presence. I reviewed and verified all information documented by the medical student and made modifications to such information, when appropriate. I personally performed the physical exam and medical decision making. Esthela Hernandez, Sep 20, 2020,05:39 TRISTEN SALDANA MED STUDENT Sep 19, 2020 11:58 ESTHELA HERNANDEZ DO Sep 20, 2020 05:39
[2020-09-19 12:00] VITALS: BP 126/80
[2020-09-19] MEDS ORDERED: RT-ALBUTEROL/IPRATROPIUM 3 ML (DUONEB) VIAL INH PRN (12:00)
--- NOTE | 2020-09-19 13:05 | Physical Therapy Evaluation ---
PT Evaluation-General Medical Diagnosis Admission Date Sep 17, 2020 at 22:25 Medical Diagnosis: COPD exacerbation Onset Date: Sep 17, 2020 Therapy Diagnosis Therapy Diagnosis: impaired mobility, strength, endurance Precautions Precautions/Isolations: Fall Prevention, Standard Precautions Referral Physician: Esthela Monge DO Reason for Referral: Evaluation/Treatment Medical History Pertinent Medical History: COPD Reviewed History: Yes Social History Home: Single Level Current Living Status: Alone Entry Into Home: Ramp Prior Prior Level of Function SCALE: Activities may be completed with or without assistive devices. 3-Acjhobqrdw-hexfpkc completes the activity by him/herself with no assistance from a helper. 5-Set-up or Clean-up Assistance-helper sets up or cleans up; patient completes activity. [place] assists only prior to or following the activity. 4-Supervision or Touching Assistance-helper provides verbal cues and/or touching/steadying and/or contact guard assistance as patient completes activ ity. Assistance may be provided throughout the activity or intermittently. 3-Partial/Moderate Assistance-helper does LESS THAN HALF the effort. [place] lifts, holds or supports trunk or limbs, but provides less than half the effort. 2-Substantial/Maximal Assistance-helper does MORE THAN HALF the effort. [place] lifts or holds trunk or limbs and provides more than half the effort. 4-Olqfbxcse-ewfmdw does ALL the effort. Patient does none of the effort to complete the activity. Or, the assistance of 2 or more helpers is required for the patient to complete the activity. If activity was not attempted, code reason: 7-Patient Refused. 9-Not Applicable-not attempted and the patient did not perform the activity before the current illness, exacerbation or injury. 10-Not Attempted due to Environmental Limitations-(lack of equipment, weather restraints, etc.). 88-Not Attempted due to Medical Conditions or Safety Concerns. Bed Mobility: 6 Transfers (B,C,W/C): 6 Gait: 6 Indoor Mobility (Ambulation): Independent Patient states he used a quad cane previously PT Evaluation-Current Subjective Patient in bed pre tx, agrees to PT, has no complaints of pain. Pt/Family Goals to be independent at home Objective Patient Orientation: Person, Place, Situation Attachments: Oxygen ROM/Strength ROM Lower Extremities WNL Strength Lower Extremities LLE (hip flexion 3/5, knee flexion 3+/5, knee extension 4/5, dorsiflexion 4+/5), RLE (hip flexion 3/5, knee flexion 3+/5, knee extension 4/5, dorsiflexion 4+/5) Sensory Hearing: Functional Sensation Right Lower Extremit: Intact Sensation Left Lower Extremity: Intact Transfers Roll Left to Right (QC): 6 Lying to Sitting/Side of Bed(Q: 4 Sit to Stand (QC): 4 Chair/Swu-nw-Nkdei Xfer(QC): 4 CGA for supine to sit and sit to stand Gait Does the Patient Walk?: Yes Mode of Locomotion: Walk Anticipated Mode of Locomotion: Walk Walk 10 feet (QC): 4 Walk 50 ft with 2 Turns(QC): 4 Walk 150 ft (QC): 88 Walking 10ft/uneven surface-QC: 88 Distance: 50'x2 Gait Assistive Device: FWW Comments/Gait Description slow but steady ambulation, patient takes significant rest break after ambulating about 50', leans against the wall, then ambulates back. Balance Sitting Static: Normal Sitting Dynamic: Normal Standing Static: Good Standing Dynamic: Fair Assessment/Needs Patient has impaired mobility, strength, endurance. Patient in recliner post tx with nurse call, phone, tray. Patient wanted to sit in recliner so he could eat his lunch that came while he was ambulating. Patient needs CGA during ambulation and transfers. Rehab Potential: Fair PT Correction Goals Correction Goals PT Postdoctoral Fellow Goals Time Frame: Sep 26, 2020 Roll Left & Right (QC): 6 Sit to Lying (QC): 6 Lying-Sitting on Side/Bed(QC): 6 Sit to Stand (QC): 6 Chair/Kfu-bd-Hviki Xfer(QC): 6 Walk 10 feet (QC): 6 Walk 50ft with 2 Turns (QC): 6 PT Plan Problem List Problem List: Activity Tolerance, Functional Strength, Safety, Balance, Gait, Transfer, Bed Mobility, ROM Treatment/Plan Treatment Plan: Continue Plan of Care Treatment Plan: Bed Mobility, Education, Functional Activity [place], Functional Strength, Gait, Safety, Therapeutic Exercise, Transfers Treatment Duration: Sep 26, 2020 Frequency: 6 times per week Estimated Hrs Per Day: .25 hour per day Patient and/or Family Agrees t: Yes Safety Risks/Education Patient Education: Gait Training, Transfer Techniques, Correct Positioning, Safety Issues Teaching Recipient: Patient Teaching Methods: Demonstration, Discussion Response to Teaching: Reinforcement Needed Discharge Recommendations Plan Patient will perform bed mobility and transfer training, balance and endurance training, functional strengthening, stair training, gait training, and education, to improve functional mobility and independence at home. Therapy Discharge Recommendati: Scheduled Assistance, Home & Family Time/GCodes Time In: 1120 Time Out: 1150 Total Billed Treatment Time: 30 Total Billed Treatment 1 visit EVL 15' GT 30' WESLEY WARD PT Sep 19, 2020 13:05
[2020-09-19] MEDS ORDERED: SAW/1TAB2 PO (13:18)
[2020-09-19] MEDS ORDERED: CALC-250 PO (13:18)
[2020-09-19] MEDS ORDERED: MAGN400T39 PO (13:18)
[2020-09-19] MEDS ORDERED: OMEP20TA7 PO (13:18)
[2020-09-19] MEDS ORDERED: RT-ALBUINH INH (13:18)
[2020-09-19] MEDS ORDERED: FLUT1BLS IH (13:18)
[2020-09-19] MEDS ORDERED: ASPI-808 PO (13:18)
[2020-09-19] MEDS ORDERED: CYAN250T PO (13:18)
[2020-09-19] MEDS ORDERED: ASPI-1238 PO (13:58)
[2020-09-19] MEDS ORDERED: SAW450CA7 PO (13:58)
[2020-09-19] MEDS ORDERED: MEMORY VITAMIN PO (14:05)
[2020-09-19] MEDS ORDERED: COGNIUM PO (14:05)
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
[2020-09-19] MEDS: ASPIRIN E.C. 325 MG (ECOTRIN) TABLET PO PRN ×2 (16:18→21:53)
[2020-09-20] MEDS: RT-ALBUTEROL/IPRATROPIUM 3 ML (DUONEB) VIAL INH SCH ×6 (02:04→21:29)
[2020-09-20 04:41] LABS: BASOPHILS % (AUTO) 0 % (0-10); EOSINOPHILS % (AUTO) 0 % (0-10); HEMATOCRIT 42 % (40-54); HEMOGLOBIN 12.9 g/dL (13.3-17.7); LYMPHOCYTES # (AUTO) 0.3 10^3/uL (1.0-4.0); LYMPHOCYTES % (AUTO) 3 % (12-44); MEAN CORPUSCULAR HEMOGLOBIN 28 pg (25-34); MEAN CORPUSCULAR HGB CONC 31 g/dL (32-36); MEAN CORPUSCULAR VOLUME 91 fL (80-99); MEAN PLATELET VOLUME 10.8 fL (9.0-12.2); MONOCYTES # (AUTO) 0.4 10^3/uL (0.0-1.0); MONOCYTES % (AUTO) 4 % (0-12); NEUTROPHILS # (AUTO) 10.2 10^3/uL (1.8-7.8); NEUTROPHILS % (AUTO) 93 % (42-75); PLATELET COUNT 140 10^3/uL (130-400)
[2020-09-20 04:51] LABS: ALBUMIN 3.4 GM/DL (3.2-4.5)
[2020-09-20 04:53] LABS: CALCIUM 8.3 MG/DL (8.5-10.1)
[2020-09-20 04:56] LABS: BILIRUBIN,TOTAL 0.4 MG/DL (0.1-1.0)
[2020-09-20 04:57] LABS: CREATININE SERUM 1.25 MG/DL (0.60-1.30)
[2020-09-20] MEDS: ENOXAPARIN 40 MG/0.4 ML (LOVENOX) SYR SC SCH (08:23)
[2020-09-20] MEDS: methylPREDNISolone 125 MG (Solu-MEDROL) VIAL IV SCH ×2 (08:23→16:33)
[2020-09-20] MEDS: CLOPIDOGREL 75 MG (PLAVIX) TABLET PO SCH (08:24)
[2020-09-20] MEDS: GABAPENTIN 600 MG (NEURONTIN) TAB PO SCH ×3 (08:24→22:49)
[2020-09-20] MEDS: lisINopril 5 MG (PRINIVIL) TABLET PO SCH (08:24)
[2020-09-20] MEDS: KCL 10 MEQ TAB (MICRO K) PO SCH ×2 (08:24→17:23)
--- NOTE | 2020-09-20 09:56 | Physical Therapy Daily Note ---
PT Daily Note-Current Subjective Patient agrees to PT. He reports he want to go home. Mental Status Patient Orientation: Normal For Age Attachments: Oxygen Transfers SCALE: Activities may be completed with or without assistive devices. 7-Ttweqgusvo-zmvcbje completes the activity by him/herself with no assistance from a helper. 5-Set-up or Clean-up Assistance-helper sets up or cleans up; patient completes activity. [place] assists only prior to or following the activity. 4-Supervision or Touching Assistance-helper provides verbal cues and/or touching/steadying and/or contact guard assistance as patient completes activity. Assistance may be provided throughout the activity or intermittently. 3-Partial/Moderate Assistance-helper does LESS THAN HALF the effort. [place] lifts, holds or supports trunk or limbs, but provides less than half the effort. 2-Substantial/Maximal Assistance-helper does MORE THAN HALF the effort. [place] lifts or holds trunk or limbs and provides more than half the effort. 9-Iuqkiywwr-fhmzgz does ALL the effort. Patient does none of the effort to complete the activity. Or, the assistance of 2 or more helpers is required for the patient to complete the activity. If activity was not attempted, code reason: 7-Patient Refused. 9-Not Applicable-not attempted and the patient did not perform the activity before the current illness, exacerbation or injury. 10-Not Attempted due to Environmental Limitations-(lack of equipment, weather restraints, etc.). 88-Not Attempted due to Medical Conditions or Safety Concerns. Lying to Sitting/Side of Bed(Q: 6 Sit to Stand (QC): 4 Chair/Xvy-pk-Mrpac Xfer(QC): 4 Gait Training Does the Patient Walk?: Yes Distance: 300' Walk 10 feet (QC): 4 Walk 50 ft with 2 Turns(QC): 4 Walk 150 ft (QC): 4 Gait Assistive Device: FWW SBA for safety/4 standing recovery periods due to fatigue and SOA Assessment Patient requires time to complete all functional tasks. Patient is up in recliner with needs met. PT Air Traffic Coordinator Goals Air Traffic Coordinator Goals PT Air Traffic Coordinator Goals Time Frame: Sep 26, 2020 Roll Left & Right (QC): 6 Sit to Lying (QC): 6 Lying-Sitting on Side/Bed(QC): 6 Sit to Stand (QC): 6 Chair/Vvu-hl-Jausb Xfer(QC): 6 Walk 10 feet (QC): 6 Walk 50ft with 2 Turns (QC): 6 PT Plan Treatment/Plan Treatment Plan: Continue Plan of Care Treatment Plan: Bed Mobility, Education, Functional Activity Pascual, Functional Strength, Gait, Safety, Therapeutic Exercise, Transfers Treatment Duration: Sep 26, 2020 Frequency: 6 times per week Estimated Hrs Per Day: .25 hour per day Patient and/or Family Agrees t: Yes Time/GCodes Time In: 913 Time Out: 936 Total Billed Treatment Time: 23 Total Billed Treatment 1 visit FA x 2 23 min JERONIMO MAHONEY PT Sep 20, 2020 09:56
[2020-09-20] MEDS: NS IV 1000 ML 1,000 ML IV SCH (11:05)
--- NOTE | 2020-09-20 11:12 | Progress Note - Hospitalist ---
TRISTEN SALDANA MED STUDENT 09/20/20 1112: Subjective HPI/CC On Admission 74-year-old male presenting from home by EMS after having increasing shortness of breath this afternoon. He has a history of COPD and emphysema and is oxygen dependent at home. He usually uses 2 L/min all the time however this afternoon that was not enough. He was working hard to breathe and felt more short of breath than normal. EMS was activated and on arrival they found him diaphoretic and pale working hard to breathe. They increased his oxygen up to 4 L/min and gave him a breathing treatment as well as 125 mg of Solu-Medrol IV. He feels like he has increased congestion to cough up but has not noticed any change in color to the congestion and phlegm. He denies any fever or chills. He has not been able to do his normal activities such as walking down the hallway to the bathroom without getting winded and out of breath. He denies any ill contacts or travel. Upon my arrival the patient reports that his shortness of breath started about 48 hours prior and got progressively worse with wheezing. He had an associated cough that was productive at times for a little bit of frothy sputum without blood. He denied any purulent sputum production and denied chest pain but did note some audible wheezing. He increase his oxygen to 3 L which was only of minimal benefit and presented to the emergency room. He reports that he has not been around anybody about his cats at home with no known Covid exposure. Rapid Covid testing is negative in the emergency room.He reports no known history of heart disease states that his brother is living in his 80s and there is no family history of heart disease. He reports he quit smoking in 2003 after about 80+ pack year smoking history. He has not had any recent admissions for pneumonia but has had a fair number of COPD exacerbations over the last several years that have been handled by IM steroids and antibiotics per his report. Subjective/Events-last exam He reports wheezing when sleeping and laying flat that was improved this morning with sitting up and inhaler use. O2 evaluation was ordered. He is tolerating a solid food diet and denies N/V. He states he hasn't had a BM since having diarrhea at home before being admitted. He is using the urinal without difficulties. He ambulated yesterday with PT using a walker. He is not a candidate for Rehab due to it not being covered by insurance and he declined to be moved to Rehab. Patient complained of pain under his jaw bilaterally that radiates to his heart. Cardiology would like to preform a cath tomorrow. Hgb 12.9 glucose 201 BUN 28 Review of Systems HEENT: Other (pain under jaw bilaterally) Pulmonary: Other (wheezing when laying flat) Gastrointestinal: Constipation; No: Nausea, Vomiting Focused Exam Lactate Level 09/17/20 23:54: Lactic Acid Level 2.35*H 09/18/20 02:50: Lactic Acid Level 2.54*H 09/18/20 07:12: Lactic Acid Level 1.55 Objective Exam Vital Signs Vital Signs Date Time Temp Pulse Resp B/P (MAP) Pulse Ox O2 Delivery O2 Flow Rate FiO2 09/20/20 10:32 97 Nasal Cannula 2.00 09/20/20 08:00 37.0 96 20 150/90 (110) 09/19/20 12:00 28 Capillary Refill : Less Than 3 Seconds General Appearance: No Apparent Distress, WD/WN Neck: Tender Lateral Respiratory: Chest Non Tender, Lungs Clear, Normal Breath Sounds, No Accessory Muscle Use, No Respiratory Distress Cardiovascular: Regular Rate, Rhythm Extremity: No Pedal Edema Neurologic/Psychiatric: Alert, Oriented x3 Skin: Normal Color, Warm/Dry Results/Procedures Lab Laboratory Tests 09/20/20 04:28 Patient resulted labs reviewed. Assessment/Plan Assessment and Plan Assess & Plan/Chief Complaint 1. COPD exacerbation without infection - on prednisone. O2 evaluation. 4 wheel walker ordered for at home use. 2. positive cardiac markers - followed by cardiology. on ASA, LMWH, and plavix. cardiac cath evaluation tomorrow. Diagnosis/Problems Diagnosis/Problems (1) Non-STEMI (non-ST elevated myocardial infarction) Status: Acute (2) COPD with exacerbation Status: Acute ESTHELA HERNANDEZ DO 09/21/20 0532: Subjective HPI/CC On Admission Date Seen by Provider: Sep 20, 2020 Time Seen by Provider: 10:30 Subjective/Events-last exam Pt up in a chair today Will need home health Decline inpatient rehab Home O2 eval will be done prior to DC Cardiac catheterization tomorrow 4-wheeled walker order placed Voiding well since discontinued catheter Was wheezing a bit when he was lying flat Bowels not moving yet but did have diarrhea when he first came in Walking around pretty well Review of Systems General: Fatigue, Malaise Pulmonary: Dyspnea Neurological: Weakness Objective Exam General Appearance: No Apparent Distress, WD/WN, Chronically ill Respiratory: Chest Non Tender, Lungs Clear, Normal Breath Sounds, No Accessory Muscle Use, No Respiratory Distress Cardiovascular: Regular Rate, Rhythm, No Edema, No Gallop, No JVD, No Murmur, Normal Peripheral Pulses Neurologic/Psychiatric: Alert, Oriented x3, No Motor/Sensory Deficits, Normal Mood/Affect Assessment/Plan Assessment and Plan Assess & Plan/Chief Complaint Assessment: AECOPD Elevated troponin Plan: Decrease steroids Supervisory-Addendum Brief Verification & Attestation Participated in pt care: history, MDM, physical Personally performed: exam, history, MDM, supervision of care Care discussed with: Medical Student Procedures: n/a Results interpretation: Verified all documentation Verification and Attestation of Medical Student E/M Service A medical student performed and documented this service in my presence. I reviewed and verified all information documented by the medical student and made modifications to such information, when appropriate. I personally performed the physical exam and medical decision making. Esthela Hernandez, Sep 21, 2020,05:33 TRISTEN SALDANA MED STUDENT Sep 20, 2020 11:12 ESTHELA HERNANDEZ DO Sep 21, 2020 05:32
--- NOTE | 2020-09-20 11:47 | Cardiology Progress Note ---
Subjective Date Seen by Provider: Sep 20, 2020 Time Seen by Provider: 11:42 Subjective/Events-last exam patient is laying down in bed, feeling better, still having some shortness of breath. Having difficulty laying down. Review of Systems General: No Chills, No Night Sweats; Fatigue, Malaise; No Appetite, No Other HEENT: No Head Aches, No Visual Changes, No Eye Pain, No Ear Pain, No Dysphasia, No Sinus Congestion, No Post Nasal Drip, No Sore Throat, No Other Pulmonary: Dyspnea; No Cough, No Pleuritic Chest Pain, No Other Cardiovascular: No: Chest Pain, Palpitations, Orthopnea, Paroxysmal Noc. Dyspnea, Edema, Lt Headedness, Other Focused Exam Lactate Level 09/17/20 23:54: Lactic Acid Level 2.35*H 09/18/20 02:50: Lactic Acid Level 2.54*H 09/18/20 07:12: Lactic Acid Level 1.55 Objective-Cardiology Exam Last Set of Vital Signs Vital Signs 09/19/20 09/20/20 09/20/20 12:00 08:00 10:32 Temp 37.0 Pulse 96 Resp 20 B/P (MAP) 150/90 (110) Pulse Ox 97 O2 Delivery Nasal Cannula O2 Flow Rate 2.00 FiO2 28 Capillary Refill : Less Than 3 Seconds I&O Intake and Output 09/20/20 00:00 Intake Total 1340 ml Output Total 650 ml Balance 690 ml Intake Oral 340 ml IV Total 1000 ml Output Urine Total 650 ml General: Alert, Oriented X3, Cooperative HEENT: Atraumatic, PERRLA Neck: Supple, No JVD, No Thyromegaly Lungs: Normal Air Movement, Other (bilateral rhonchi) Heart: Regular Rate, Normal S1, Normal S2, No Murmurs Abdomen: Normal Bowel Sounds, Soft, No Tenderness, No Hepatosplenomegaly, No Masses Extremities: No Clubbing, No Cyanosis, No Edema, Normal Pulses, No Tenderness/Swelling Skin: No Rashes, No Breakdown, No Significant Lesion Neuro: Normal Gait, Normal Speech, Strength at 5/5 X4 Ext, Normal Tone, Sensation Intact Psych/Mental Status: Mental Status NL, Mood NL Results Lab Laboratory Tests 09/20/20 04:28 A/P-Cardiology Admission Diagnosis Acute exacerbation of COPD Acute respiratory failure Type II myocardial infarction Hypertension Assessment/Plan Acute exacerbation of COPD, acute respiratory failure, improving, history of oxygen dependency at home using 2 L nasal cannula, the management by primary care physician Mild elevation in troponin, probably type II myocardial infarction secondary to severe hypoxemia. Maintained on Lovenox and Plavix. Discussed with the patient the management plan recommended cardiac catheterization, patient might not be able to lay down, he will not be able to lay down for Lexiscan stress test, cardiac catheter with possible radial access probably is his best option, we'll start IV fluid and monitor tolerance and response Thrombocytopenia, probably secondary to lab error, repeat CBC showed normal platelets Hypertension, maintained on lisinopril Okay for discharge from cardiology standpoint, arrange for follow-up as an outpatient DAYAMI MCCABE MD Sep 20, 2020 11:46
--- NOTE | 2020-09-20 14:42 | Occ Therapy Progress Note ---
Therapy Progress Note OT attempts to complete treatment with pt. Pt. has just returned to bed. Pt. declines all attempts at treatment. He requests for his trash can to be placed at his side, and for a blanket to be placed over his feet. Pt. reports that he used all of his energy getting back to bed. OT offers to assist him sponge bathe, but pt. states that he has been doing this himself each day, and points to a package of bath wipes. Pt. also declines all attempts to ambulate, or ambulate to the bathroom. Pt. states, "I am staying right where I'm at." All needs are met. 1, visit x 9minutes [id number] Decline treatment OLU JACOB OT Sep 20, 2020 14:42
[2020-09-20] MEDS: ASPIRIN E.C. 325 MG (ECOTRIN) TABLET PO PRN ×2 (17:28→22:49)
[2020-09-20] MEDS ORDERED: RT-ALBUTEROL SULF 2.5 MG/3 ML PRE-MIX VIAL INH PRN (20:30)
[2020-09-20] MEDS ORDERED: NON-FORMULARY MEDICATION 1 EA EA (Potassium Chloride 10 MEQ) PO SCH (21:00)
[2020-09-20] MEDS ORDERED: GABAPENTIN 600 MG (NEURONTIN) TAB PO SCH (21:00)
[2020-09-20] MEDS ORDERED: guaiFENesin/DM (ROBITUSSIN DM) 10 ML UDC PO PRN (21:00)
[2020-09-20] MEDS ORDERED: methylPREDNISolone 125 MG (Solu-MEDROL) VIAL IV SCH (21:00)
[2020-09-20] MEDS: methylPREDNISolone 40 MG/ML (Solu-MEDROL) VIAL IV SCH (22:49)
[2020-09-21] MEDS: RT-ALBUTEROL/IPRATROPIUM 3 ML (DUONEB) VIAL INH SCH ×6 (01:54→21:53)
[2020-09-21 02:50] LABS: BASOPHILS % (AUTO) 0 % (0-10); EOSINOPHILS % (AUTO) 0 % (0-10); HEMATOCRIT 40 % (40-54); HEMOGLOBIN 12.4 g/dL (13.3-17.7); LYMPHOCYTES # (AUTO) 0.4 10^3/uL (1.0-4.0); LYMPHOCYTES % (AUTO) 4 % (12-44); MEAN CORPUSCULAR HEMOGLOBIN 28 pg (25-34); MEAN CORPUSCULAR HGB CONC 31 g/dL (32-36); MEAN CORPUSCULAR VOLUME 90 fL (80-99); MEAN PLATELET VOLUME 10.7 fL (9.0-12.2); MONOCYTES # (AUTO) 0.8 10^3/uL (0.0-1.0); MONOCYTES % (AUTO) 6 % (0-12); NEUTROPHILS # (AUTO) 10.8 10^3/uL (1.8-7.8); NEUTROPHILS % (AUTO) 89 % (42-75); PLATELET COUNT 149 10^3/uL (130-400); WHITE BLOOD COUNT 12.1 10^3/uL (4.3-11.0)
[2020-09-21 03:03] LABS: ALBUMIN 3.2 GM/DL (3.2-4.5)
[2020-09-21 03:04] LABS: CHLORIDE 109 MMOL/L (98-107); POTASSIUM 4.1 MMOL/L (3.6-5.0); SODIUM 142 MMOL/L (135-145)
[2020-09-21 03:05] LABS: CALCIUM 8.2 MG/DL (8.5-10.1)
[2020-09-21 03:06] LABS: GLUCOSE 176 MG/DL (70-105); TOTAL PROTEIN 5.8 GM/DL (6.4-8.2)
[2020-09-21 03:07] LABS: CARBON DIOXIDE 24 MMOL/L (21-32)
[2020-09-21 03:08] LABS: BILIRUBIN,TOTAL 0.4 MG/DL (0.1-1.0)
[2020-09-21 03:09] LABS: ALKALINE PHOSPHATASE 64 U/L (40-136)
[2020-09-21 03:10] LABS: GFR ESTIMATED > 60
[2020-09-21 03:11] LABS: BUN/CREATININE RATIO 25
[2020-09-21 03:12] LABS: ALANINE AMINOTRANSFERASE 20 U/L (0-55)
[2020-09-21] MEDS: NS IV 1000 ML 1,000 ML IV SCH (04:02)
[2020-09-21] MEDS ORDERED: HEParin (CATH LAB) 2,000 ML IV ONE (06:39)
[2020-09-21] MEDS ORDERED: NS IV 1000 ML 0 ML ONE (06:39)
[2020-09-21] MEDS ORDERED: LIDOCAINE 1% INJ 20 ML 20 ML VIAL ONE (06:39)
[2020-09-21] MEDS ORDERED: MIDAZOLAM 5 MG/5 ML (VERSED) VIAL ONE (06:51)
[2020-09-21] MEDS ORDERED: fentaNYL INJECTION 100 MCG/2 ML AMP ONE (06:51)
[2020-09-21] MEDS: ADVAIR HFA 115/21 MCG INHALER 8 GM IH SCH ×2 (07:49→18:25)
[2020-09-21] MEDS: ENOXAPARIN 40 MG/0.4 ML (LOVENOX) SYR SC SCH (08:06)
[2020-09-21] MEDS ORDERED: HEParin 1000 UNIT/ML (10ML VIAL) FOR BOLUS ONE (08:16)
[2020-09-21] MEDS ORDERED: VERAPAMIL 5 MG/2 ML (CALAN) VIAL IV ONE (08:16)
[2020-09-21] MEDS ORDERED: NITRO DRIP 25000 MCG/D5W 250 ML IV ONE (08:16)
[2020-09-21] MEDS ORDERED: ASPIRIN 325 MG (5 GR) TABLET ONE (08:38)
[2020-09-21] MEDS ORDERED: CLOPIDOGREL 300 MG (PLAVIX) TABLET PO ONE (08:38)
[2020-09-21] MEDS ORDERED: CYANOCOBALAMIN 250 MCG PO SCH (09:00)
[2020-09-21] MEDS ORDERED: lisINopril 5 MG (PRINIVIL) TABLET PO SCH (09:00)
[2020-09-21] MEDS: CLOPIDOGREL 75 MG (PLAVIX) TABLET PO SCH (09:00)
[2020-09-21] MEDS ORDERED: NON-FORMULARY MEDICATION 1 EA EA (Fluticasone/Vilanterol (Breo Ellipta 200-25 Mcg INH) 1 P IH SCH (09:00)
--- NOTE | 2020-09-21 09:11 | Cardiac Procedure Note-CS/ASA ---
Pre-Procedure Note Pre-Op Procedure Note H&P Reviewed The H&P was reviewed, patient examined and no changes noted. Date H&P Reviewed: Sep 21, 2020 Time H&P Reviewed: 08:00 Conscious Sedation Pre-Proced Time 08:00 ASA Score 3 For ASA 3 and 4: Consider anesthesia and medical clearance. Also, for patients with a history of failed moderate sedation consider anesthesia. Airway Lungs Heart ASA score ASA 1: a normal healthy patient ASA 2: a patient with a mild systemic disease (mid diabetes, controlled hypertension, obesity x ASA 3: a patient with a severe systemic disease that limits activity (angina, COPD, prior Myocardial infarction) ASA 4: a patient with an incapacitating disease that is a constant threat to life (CHF, renal failure) ASA 5: a moribund patient not expected to survive 24 hrs. (ruptured aneurysm) ASA 6: a declared brain- patient whose organs are being harvested. For emergent operations, add the letter E after the classification Mallampati Classification Grade 3 Sedation Plan Analgesia, Amnesia, Plan communicated to team members, Discussed options with patient/fam, Discussed risks with patient/fam The patient is an appropriate candidate to undergo the planned procedure, sedation, and anesthesia. The patient immediately re-assessed prior to indication. DAYAMI MCCABE MD Sep 21, 2020 9:11 am
[2020-09-21] MEDS ORDERED: NS IV 1000 ML 1,000 ML IV SCH (09:15)
[2020-09-21] MEDS: VITAMIN D3 125 MCG (5,000 UNITS) CAPSULE PO SCH (09:32)
[2020-09-21] MEDS: methylPREDNISolone 40 MG/ML (Solu-MEDROL) VIAL IV SCH ×2 (09:32→21:36)
[2020-09-21] MEDS: GABAPENTIN 600 MG (NEURONTIN) TAB PO SCH ×3 (09:32→21:37)
[2020-09-21] MEDS: MAGNESIUM OXIDE (MAG-OX)400 MG TAB PO SCH (09:32)
[2020-09-21] MEDS: PANTOPRAZOLE 20 MG TABLET (PROTONIX) PO SCH (09:32)
[2020-09-21] MEDS: KCL 10 MEQ TAB (MICRO K) PO SCH ×2 (09:33→17:45)
[2020-09-21] MEDS: lisINopril 5 MG (PRINIVIL) TABLET PO SCH (09:33)
--- NOTE | 2020-09-21 11:17 | Progress Note - Hospitalist ---
TRISTEN SALDANA MED STUDENT 09/21/20 1117: Subjective HPI/CC On Admission 74-year-old male presenting from home by EMS after having increasing shortness of breath this afternoon. He has a history of COPD and emphysema and is oxygen dependent at home. He usually uses 2 L/min all the time however this afternoon that was not enough. He was working hard to breathe and felt more short of breath than normal. EMS was activated and on arrival they found him diaphoretic and pale working hard to breathe. They increased his oxygen up to 4 L/min and gave him a breathing treatment as well as 125 mg of Solu-Medrol IV. He feels like he has increased congestion to cough up but has not noticed any change in color to the congestion and phlegm. He denies any fever or chills. He has not been able to do his normal activities such as walking down the hallway to the bathroom without getting winded and out of breath. He denies any ill contacts or travel. Upon my arrival the patient reports that his shortness of breath started about 48 hours prior and got progressively worse with wheezing. He had an associated cough that was productive at times for a little bit of frothy sputum without blood. He denied any purulent sputum production and denied chest pain but did note some audible wheezing. He increase his oxygen to 3 L which was only of minimal benefit and presented to the emergency room. He reports that he has not been around anybody about his cats at home with no known Covid exposure. Rapid Covid testing is negative in the emergency room.He reports no known history of heart disease states that his brother is living in his 80s and there is no family history of heart disease. He reports he quit smoking in 2003 after about 80+ pack year smoking history. He has not had any recent admissions for pneumonia but has had a fair number of COPD exacerbations over the last several years that have been handled by IM steroids and antibiotics per his report. Subjective/Events-last exam The patient went to cardiac cath this morning around 7AM and had a stent placed in his RCA due to a narrowing. He denies pain or cough. His last BM was Saturday when he had diarrhea. He ambulated yesterday with PT. Review of Systems Pulmonary: No Cough Cardiovascular: No: Chest Pain Gastrointestinal: No: Abdominal Pain Objective Exam Vital Signs Vital Signs Date Time Temp Pulse Resp B/P (MAP) Pulse Ox O2 Delivery O2 Flow Rate FiO2 09/21/20 10:26 91 Nasal Cannula 2.00 09/21/20 08:00 36.4 90 18 145/92 (109) 09/19/20 12:00 28 Capillary Refill : Less Than 3 Seconds General Appearance: No Apparent Distress, WD/WN Respiratory: Chest Non Tender, Lungs Clear, Normal Breath Sounds, No Accessory Muscle Use, No Respiratory Distress Cardiovascular: Regular Rate, Rhythm Neurologic/Psychiatric: Alert, Oriented x3 Skin: Normal Color, Warm/Dry Results/Procedures Lab Laboratory Tests 09/21/20 02:37 Patient resulted labs reviewed. Assessment/Plan Assessment and Plan Assess & Plan/Chief Complaint 1. COPD exacerbation without infection - on prednisone. O2 evaluation. 4 wheel walker ordered for at home use. 2. positive cardiac markers - followed by cardiology. on ASA, LMWH, and plavix. cardiac cath with stent in RCA this morning. Will keep in hospital another day and possible d/c tomorrow. Diagnosis/Problems Diagnosis/Problems (1) Non-STEMI (non-ST elevated myocardial infarction) Status: Acute (2) COPD with exacerbation Status: Acute ESTHELA HERNANDEZ DO 09/22/20 0454: Subjective HPI/CC On Admission Date Seen by Provider: Sep 21, 2020 Time Seen by Provider: 10:00 Subjective/Events-last exam Pt hasnt had a BM since diarrhea on Saturday so will start Colace twice daily Underwent a cardiac cath with an RCA stent placement Oxygen evaluation at time of discharged for portable units Home health will be needed DC will be planned for tomorrow Review of Systems General: Fatigue, Malaise Objective Exam General Appearance: No Apparent Distress, WD/WN, Chronically ill Respiratory: Lungs Clear Cardiovascular: Regular Rate, Rhythm Neurologic/Psychiatric: Alert, Oriented x3, No Motor/Sensory Deficits, Normal Mood/Affect Assessment/Plan Assessment and Plan Assess & Plan/Chief Complaint DC home tomorrow O2 study Portable O2 needed Supervisory-Addendum Brief Verification & Attestation Participated in pt care: history, MDM, physical Personally performed: exam, history, MDM, supervision of care Care discussed with: Medical Student Procedures: n/a Results interpretation: Verified all documentation Verification and Attestation of Medical Student E/M Service A medical student performed and documented this service in my presence. I reviewed and verified all information documented by the medical student and made modifications to such information, when appropriate. I personally performed the physical exam and medical decision making. Esthela Hernandez, Sep 22, 2020,04:54 TRISTEN SALDANA MED STUDENT Sep 21, 2020 11:17 ESTHELA HERNANDEZ DO Sep 22, 2020 04:54
--- NOTE | 2020-09-21 11:45 | Occ Therapy Progress Note ---
Therapy Progress Note Pt. had heart cath this a.m. and stent placed. Will hold this date for OT and see tomorrow. 1144 OLU JACOB OT Sep 21, 2020 11:45
--- NOTE | 2020-09-21 12:52 | Cardiology Progress Note ---
Subjective Date Seen by Provider: Sep 21, 2020 Time Seen by Provider: 12:50 Subjective/Events-last exam Patient was seen at bedside still having some shortness of breath, feeling better. Small hematoma in the right wrist Review of Systems General: No Chills, No Night Sweats; Fatigue; No Malaise, No Appetite, No Other HEENT: No Head Aches, No Visual Changes, No Eye Pain, No Ear Pain, No Dysphasia, No Sinus Congestion, No Post Nasal Drip, No Sore Throat, No Other Pulmonary: Dyspnea; No Cough, No Pleuritic Chest Pain, No Other Cardiovascular: No: Chest Pain, Palpitations, Orthopnea, Paroxysmal Noc. Dyspnea, Edema, Lt Headedness, Other Objective-Cardiology Exam Last Set of Vital Signs Vital Signs 09/19/20 09/21/20 09/21/20 09/21/20 12:00 10:26 12:00 12:28 Temp 36.2 Pulse 95 Resp 16 B/P (MAP) 126/77 (93) Pulse Ox 91 O2 Delivery Nasal Cannula O2 Flow Rate 2.00 FiO2 28 Capillary Refill : Less Than 3 Seconds I&O Intake and Output 09/21/20 00:00 Intake Total 2075 ml Output Total 825 ml Balance 1250 ml Intake Oral 2075 ml Output Urine Total 825 ml General: Alert, Oriented X3, Cooperative HEENT: Atraumatic, PERRLA Neck: Supple, No JVD, No Thyromegaly Lungs: Normal Air Movement, Other (bilateral rhonchi) Heart: Regular Rate, Normal S1, Normal S2, No Murmurs Abdomen: Normal Bowel Sounds, Soft, No Tenderness, No Hepatosplenomegaly, No Masses Extremities: No Clubbing, No Cyanosis, No Edema, Normal Pulses, No Tenderness/Swelling Skin: No Rashes, No Breakdown, No Significant Lesion Neuro: Normal Gait, Normal Speech, Strength at 5/5 X4 Ext, Normal Tone, Sensation Intact Psych/Mental Status: Mental Status NL, Mood NL Results Lab Laboratory Tests 09/21/20 02:37 A/P-Cardiology Admission Diagnosis Acute exacerbation of COPD Acute respiratory failure Type II myocardial infarction Hypertension Assessment/Plan Acute exacerbation of COPD, acute respiratory failure, improving, history of oxygen dependency at home using 2 L nasal cannula, managed by primary care physician next Coronary artery disease, mild elevation in troponin level, angiogram was done today patient received a 2.5 x 23 mm [place] stent to the midright coronary artery with excellent results. Has moderate disease in the LAD. Continue with medical therapy, started on aspirin and Plavix will continue to monitor Thrombocytopenia, probably secondary to lab error, repeat CBC showed normal platelets Hypertension, maintained on lisinopril DAYAMI MCCABE MD Sep 21, 2020 12:52
--- NOTE | 2020-09-21 12:58 | Cardiac Cath Report ---
Cardiac Cath Report Physician (s)/Hydraulic Press In Operator (s) Physician DAYAMI MCCABE MD Pre-Procedure Diagnosis Pre-Procedure Diagnosis: Coronary artery disease Post-Procedure Note Procedure Start Date: Sep 21, 2020 Name of Procedure: Left heart catheterization Stent to the right coronary artery Findings/Procedure Note PROCEDURE NOTE: 74 years old gentleman admitted with acute respiratory failure. Due to exacerbation of COPD. Was noted to have elevated troponin. I decided to proceed with cardiac catheterization using radial access. After explaining the procedure to the patient, all pros and cons were explained, all questions were answered. The patient signed the consent and then he was placed on the cardiac catheterization laboratory. Groin was prepped SL fashion local anesthesia was used. Sheath placed in the right radial artery, [place] catheter was advanced to the left ventricular cavity, pressure was measured pullback LV to aorta was done then intubated the right then left coronary system. Patient had severe disease in the distal right coronary artery, additional 3000 units of heparin were given, as our guide was used and BMW wire was parked in the distal portion of the artery then primary stenting using [place] 2.5 x 23 mm deployed under 16 kirill with excellent results, no residual stenosis. At the end of the procedure the sheath was removed. Vascular band was used FINDINGS: Hemodynamics LV 118/13, end-diastolic pressure of 13 Aorta 104/67 mean of 85 ANATOMY: Left Main is free of obstructive disease Left Anterior Descending has moderate disease distally nonobstructive disease Left Circumflex has moderate disease distally nonobstructive disease Right Coronory Artery has severe disease at the mid to distal portion, primary stenting using [place] 2.5 x 23 mm deployed under 16 kirill with excellent results LV Gram was done showing normal left ventricle size with EF 60 percent CONCLUSION: 1. Severe stenosis in the mid to distal right coronary artery was successful pr imary stenting using [place] 2.5 x 23 mm with excellent results. 2. Tortuous LAD system with moderate lesion in the midportion and mid to distal portion, close monitoring is recommended, moderate stenosis in the circumflex artery 3. Normal left ventricular size and systolic function estimated ejection fraction 60 percent DISCUSSION AND RECOMMENDATION: Patient receive aspirin 325 mg, Plavix 600 mg, will continue maximizing medical therapy and monitor as an outpatient Anesthesia Type: Conscious Sedation Estimated blood loss (mL): 25 ml Contrast Amount: 116 ml Total Radiation Dose: 737 mGy Post-Procedure Diagnosis Post-operative diagnosis: Non-ST elevation myocardial infarction Coronary artery disease Acute respiratory insufficiency COPD DAYAMI MCCABE MD Sep 21, 2020 12:58
--- NOTE | 2020-09-21 15:09 | Physical Therapy Progress Note ---
Therapy Progress Note Patient had a heart cath this AM. Will resume therapy with patient in the morning. WESLEY WARD PT Sep 21, 2020 15:09
[2020-09-21] MEDS: ASPIRIN E.C. 325 MG (ECOTRIN) TABLET PO PRN (17:46)
[2020-09-22] MEDS: RT-ALBUTEROL/IPRATROPIUM 3 ML (DUONEB) VIAL INH SCH ×2 (02:18→07:02)
[2020-09-22] MEDS: ASPIRIN E.C. 325 MG (ECOTRIN) TABLET PO PRN (03:29)
[2020-09-22 06:18] LABS: HEMOGLOBIN 12.3 g/dL (13.3-17.7); MEAN PLATELET VOLUME 11.3 fL (9.0-12.2); WHITE BLOOD COUNT 12.1 10^3/uL (4.3-11.0)
[2020-09-22 06:23] LABS: ALBUMIN 3.1 GM/DL (3.2-4.5); CHLORIDE 105 MMOL/L (98-107); POTASSIUM 4.7 MMOL/L (3.6-5.0); SODIUM 141 MMOL/L (135-145)
[2020-09-22 06:25] LABS: CALCIUM 8.1 MG/DL (8.5-10.1)
[2020-09-22 06:26] LABS: GLUCOSE 180 MG/DL (70-105); TOTAL PROTEIN 5.5 GM/DL (6.4-8.2)
[2020-09-22 06:27] LABS: CARBON DIOXIDE 28 MMOL/L (21-32)
[2020-09-22 06:28] LABS: BILIRUBIN,TOTAL 0.5 MG/DL (0.1-1.0)
[2020-09-22 06:29] LABS: ALKALINE PHOSPHATASE 68 U/L (40-136); CREATININE SERUM 1.04 MG/DL (0.60-1.30); GFR ESTIMATED > 60
[2020-09-22 06:30] LABS: BUN/CREATININE RATIO 27
[2020-09-22 06:32] LABS: ALANINE AMINOTRANSFERASE 32 U/L (0-55)
[2020-09-22] MEDS: ADVAIR HFA 115/21 MCG INHALER 8 GM IH SCH (07:05)
[2020-09-22] MEDS: VITAMIN D3 125 MCG (5,000 UNITS) CAPSULE PO SCH (08:00)
[2020-09-22] MEDS: CLOPIDOGREL 75 MG (PLAVIX) TABLET PO SCH (08:00)
[2020-09-22] MEDS: MAGNESIUM OXIDE (MAG-OX)400 MG TAB PO SCH (08:00)
[2020-09-22] MEDS: KCL 10 MEQ TAB (MICRO K) PO SCH (08:01)
[2020-09-22] MEDS: lisINopril 5 MG (PRINIVIL) TABLET PO SCH (08:01)
[2020-09-22] MEDS: methylPREDNISolone 40 MG/ML (Solu-MEDROL) VIAL IV SCH (08:01)
[2020-09-22] MEDS: ENOXAPARIN 40 MG/0.4 ML (LOVENOX) SYR SC SCH (08:01)
[2020-09-22] MEDS: GABAPENTIN 600 MG (NEURONTIN) TAB PO SCH (08:01)
[2020-09-22] MEDS: PANTOPRAZOLE 20 MG TABLET (PROTONIX) PO SCH (08:01)
--- NOTE | 2020-09-22 08:25 | Cardiology Progress Note ---
Subjective Date Seen by Provider: Sep 22, 2020 Time Seen by Provider: 08:20 Subjective/Events-last exam Patient is laying down in bed, feeling better, breathing better, mild bruising on his wrist with mild discomfort Review of Systems General: No Chills, No Night Sweats, No Fatigue, No Malaise, No Appetite, No Other HEENT: No Head Aches, No Visual Changes, No Eye Pain, No Ear Pain, No Dysphasia, No Sinus Congestion, No Post Nasal Drip, No Sore Throat, No Other Pulmonary: Dyspnea; No Cough, No Pleuritic Chest Pain, No Other Cardiovascular: No: Chest Pain, Palpitations, Orthopnea, Paroxysmal Noc. Dyspnea, Edema, Lt Headedness, Other Objective-Cardiology Exam Last Set of Vital Signs Vital Signs 09/19/20 09/22/20 12:00 07:55 Temp 36.9 Pulse 101 Resp 23 B/P (MAP) 132/83 (99) Pulse Ox 97 O2 Delivery Nasal Cannula O2 Flow Rate 3.00 FiO2 28 Capillary Refill : Less Than 3 Seconds I&O Intake and Output 09/22/20 00:00 Intake Total 1486 ml Output Total 1100 ml Balance 386 ml Intake Oral 475 ml IV Total 1011 ml Output Urine Total 1100 ml General: Alert, Oriented X3, Cooperative HEENT: Atraumatic, PERRLA Neck: Supple, No JVD, No Thyromegaly Lungs: Normal Air Movement, Other (bilateral rhonchi) Heart: Regular Rate, Normal S1, Normal S2, No Murmurs Abdomen: Normal Bowel Sounds, Soft, No Tenderness, No Hepatosplenomegaly, No Masses Extremities: No Clubbing, No Cyanosis, No Edema, Normal Pulses, No Tenderness/Swelling Skin: No Rashes, No Breakdown, No Significant Lesion Neuro: Normal Gait, Normal Speech, Strength at 5/5 X4 Ext, Normal Tone, Sensation Intact Psych/Mental Status: Mental Status NL, Mood NL Results Lab Laboratory Tests 09/22/20 06:08 A/P-Cardiology Admission Diagnosis Acute exacerbation of COPD Acute respiratory failure Type II myocardial infarction Hypertension Assessment/Plan Acute exacerbation of COPD, acute respiratory failure, improving, history of oxygen dependency at home using 2 L nasal cannula, managed by primary care physician Coronary artery disease, mild elevation in troponin level, angiogram was done on September 21, 2020, patient received a 2.5 x 23 mm [place] stent to the midright coronary artery with excellent results. Has moderate disease in the LAD. Continue with medical therapy, started on aspirin and Plavix will continue to monitor Thrombocytopenia, probably secondary to lab error, repeat CBC showed normal platelets Hypertension, maintained on lisinopril Okay for discharge from cardiology standpoint, follow-up as an outpatient DAYAMI MCCABE MD Sep 22, 2020 08:24
[2020-09-22] MEDS ORDERED: ASPIRIN E.C. 81 MG (ECOTRIN) TAB PO SCH (09:00)
[2020-09-22] MEDS ORDERED: CLOPIDOGREL 75 MG (PLAVIX) TABLET PO SCH (09:00)
[2020-09-22] MEDS ORDERED: PRED10TA22 PO (10:25)
[2020-09-22] MEDS ORDERED: CLOP75TA28 PO (10:25)
[2020-09-22] MEDS ORDERED: ASPI-1238 PO (10:25)
--- NOTE | 2020-09-22 10:26 | D/C HH Face to Face Order ---
D/C Face to Face Orders Reconcile Patient Problems Problems Reviewed?: Yes Instructions for Patient Home Health Patient Instructions/FollowUp: Dr Vora Physician to follow Patient: Vielka Discharge Diet for Home: Cardiac Diet Patient Problems: Dyspnea O2 dependence s/p stent placement in RCA Patient Data-Allergies,Ht & Wt Patient Allergies: Coded Allergies: Penicillins (Verified Allergy, Unknown, 09/17/20) Home Health Need/Face to Face Date of Face to Face: Sep 22, 2020 Clinical Findings: Generalized weakness and fatigue, Instability, Muscle weakness, Shortness of breath, Unsteady gait I have seen Pt [id number]: Yes Discharged To: Home Diagnosis/Conditions: CAD Patient is Homebound due to: [place] fall risk due to instabilty, Muscle weakness, Shortness of breath/distress Homebound Status Due to the above stated illness, injury or surgical procedure (medical condition or diagnosis) and associated clinical findings, the patient is homebound because of his/her inability to leave home except with aid of a supportive device and/or person AND leaving the home requires a considerable and taxing effort or is medically contraindicated. Pt req the following assistanc: Walker Home Health Nursing Orders Home Health Services Order: Nursing Services, Wheel Setter-Evaluate & Treat, Physical Therapy-Evaluate & Treat Home Health Infusion Therapy Line Start Date: Sep 18, 2020 Certify Stmt I certify that this patient is under my care and that I, a nurse practitioner or a physician; a anesthetic assistant working with me, had a face to face encounter that - meets the physician face to face encounter requirements with this patient as dated. ALVARO HERNANDEZ DO Sep 22, 2020 10:26
--- NOTE | 2020-09-22 10:26 | Discharge Summary ---
Discharge Summary Hospital Course Was the Problem List Reviewed?: Yes Problems/Dx: (1) Non-STEMI (non-ST elevated myocardial infarction) Status: Acute (2) COPD with exacerbation Status: Acute Hospital Course Date of Admission: Sep 17, 2020 at 22:25 Admission Diagnosis : Family Physician/Provider: Corona Vora MD Date of Discharge: 09/22/20 Discharge Diagnosis: AECOPD, acute resp failure, NSTEMI, s/p stent in cardiac cath Hospital Course: Lengthy course after admitted for dyspnea. Steroids initiated for AECOPD and O2 maintained. Cardiology consulted for elevated troponin and patient ultimately underwent cath with stent placement with good results. PT OT consulted. O2 order for 2L/min continuous ordered for DC. Patient had improved status but chronic debility noted. Labs and Pending Lab Test: Laboratory Tests 09/22/20 06:08: White Blood Count 12.1H, Red Blood Count 4.37, Hemoglobin 12.3L, Hematocrit 39L, Mean Corpuscular Volume 90, Mean Corpuscular Hemoglobin 28, Mean Corpuscular Hemoglobin Concent 31L, Red Cell Distribution Width 14.8H, Platelet Count 140, Mean Platelet Volume 11.3, Sodium Level 141, Potassium Level 4.7, Chloride Level 105, Carbon Dioxide Level 28, Anion Gap 8, Blood Urea Nitrogen 28H, Creatinine 1.04, Estimat Glomerular Filtration Rate > 60, BUN/Creatinine Ratio 27, Glucose Level 180H, Calcium Level 8.1L, Corrected Calcium 8.8, Total Bilirubin 0.5, Aspartate Amino Transf (AST/SGOT) 19, Alanine Aminotransferase (ALT/SGPT) 32, Alkaline Phosphatase 68, Total Protein 5.5L, Albumin 3.1L Microbiology 09/17/20 Blood Culture - Preliminary, Resulted Staph, Coag Neg (ACCOUNT ADVISOR) Home Meds Active Prednisone 10 Mg Tab.ds.pk 10 Mg PO DAILY Take 6 tabs(60mg)daily,decrease by 1 tab(10MG)daily. Clopidogrel (Clopidogrel Bisulfate) 75 Mg Tablet 75 Mg PO DAILY Aspirin EC (Aspirin) 81 Mg Tablet.dr 81 Mg PO DAILY Reported [Memory Vitamin] 1 Each PO BID [place] ([place] Fruit) 450 Mg Capsule 450 Mg PO BID Magnesium (Magnesium Oxide) 400 Mg Tablet 400 Mg PO DAILY Vitamin B-12 (Cyanocobalamin (Vitamin B-12)) 250 Mcg Tablet 250 Mcg PO DAILY Vitamin D3 (Cholecalciferol (Vitamin D3)) 125 Mcg Tablet 125 Mcg PO DAILY Breo Ellipta 200-25 Mcg INH (Fluticasone/Vilanterol) 1 Each Blst.w.dev 1 Puff IH DAILY Omeprazole 20 Mg Tablet.dr 20 Mg PO DAILY Aspirin 325 Mg Tablet 650 Mg PO DAILY PRN Proair Hfa (Albuterol Sulfate) 1 Puff Puff 1 Puff INH Q4- 6H PRN Lisinopril 5 Mg Tablet 5 Mg PO DAILY Potassium Chloride 10 Meq Tab.er.prt 10 Meq PO BID Gabapentin 600 Mg Tablet 600 Mg PO TID Assessment/Pt Instructions [facility] 1 week Discharge Planning: <30 minutes discharge planning Discharge Instructions Discharge Diet: Cardiac Diet Activity as Tolerated: Yes Discharge Physical Examination Vital Signs Vital Signs Date Time Temp Pulse Resp B/P (MAP) Pulse Ox O2 Delivery O2 Flow Rate FiO2 09/22/20 07:55 36.9 101 23 132/83 (99) 97 Nasal Cannula 3.00 09/19/20 12:00 28 General Appearance: No Apparent Distress, WD/WN Respiratory: Chest Non Tender, Lungs Clear, Normal Breath Sounds, No Accessory Muscle Use, No Respiratory Distress Cardiovascular: Regular Rate, Rhythm, No Edema, No Gallop, No JVD, No Murmur, Normal Peripheral Pulses Neurologic/Psychiatric: Alert, Oriented x3, No Motor/Sensory Deficits, Normal Mood/Affect Allergies: Coded Allergies: Penicillins (Verified Allergy, Unknown, 09/17/20) Discharge Summary Date of Admission Sep 17, 2020 at 22:25 Date of Discharge Discharge Date: Sep 22, 2020 Admission Diagnosis A/P 1. Acute COPD exacerbation no evidence for infection. Elevated lactate likely due to hypoxemia from COPD exacerbation. Considering some frothy sputum and hypoxemia congestive heart failure is in the differential will obtain echocardiography for further investigation. Patient Covid negative. Patient appears to be rapid responder to steroids well give another dose of Solu-Medrol today and switch to prednisone in the morning. 2. Patient has had no evidence for bleeding with urgent serum platelet count in the mid 20s yesterday and 160 here compatible with pseudohyponatremia will initiate Lovenox for DVT prophylaxis 40 mg subcu daily. Discharge Diagnosis DC home tomorrow O2 study Portable O2 needed (1) Non-STEMI (non-ST elevated myocardial infarction) Status: Acute (2) COPD with exacerbation Status: Acute ALVARO HERNANDEZ DO Sep 22, 2020 10:26
--- NOTE | 2020-09-22 10:47 | Occupational Ther Daily Note ---
OT Current Status-Daily Note Subjective Pt potential d/c on this date per nursing. Pt AxO, upright EOB upon entry. Pt agrees to tx. Mental Status/Objective Patient Orientation: Person, Place, Situation, Normal For Age Attachments: Oxygen ADL-Treatment Therapy Code Descriptions/Definitions Functional [place] Measure: 0=Not Assessed/NA 4=Minimal Assistance 1=Total Assistance 5=Supervision or Setup 2=Maximal Assistance 6=Modified [place] 3=Moderate Assistance 7=Complete IndependenceSCALE: Activities may be completed with or without assistive devices. 0-Qzvldpglfa-vqokjpt completes the activity by him/herself with no assistance from a helper. 5-Set-up or Clean-up Assistance-helper sets up or cleans up; patient completes activity. [place] assists only prior to or following the activity. 4-Supervision or Touching Assistance-helper provides verbal cues and/or touching/steadying and/or contact guard assistance as patient completes activity. Assistance may be provided throughout the activity or intermittently. 3-Partial/Moderate Assistance-helper does LESS THAN HALF the effort. [place] lifts, holds or supports trunk or limbs, but provides less than half the effort. 2-Substantial/Maximal Assistance-helper does MORE THAN HALF the effort. [place] lifts or holds trunk or limbs and provides more than half the effort. 7-Xgsyekycd-apmdng does ALL the effort. Patient does none of the effort to complete the activity. Or, the assistance of 2 or more helpers is required for the patient to complete the activity. If activity was not attempted, code reason: 7-Patient Refused. 9-Not Applicable-not attempted and the patient did not perform the activity before the current illness, exacerbation or injury. 10-Not Attempted due to Environmental Limitations-(lack of equipment, weather restraints, etc.). 88-Not Attempted due to Medical Conditions or Safety Concerns. Eating (QC): 6 Shower/Bathe Self (QC): 7 On/Off Footwear: 6 Other Treatment Pt dons shoes EOB without difficulty. SOB noted throughout sitting EOB/ bending and during ambulation. However, sats >90. Pt educated on safety in home. Pt states was given the okay to take therapy quad cane home. pt is educated this is usually not the case and OT will check with staff. pt states if not taking this one, staff must "go buy me one before I leave." Pt states he has a quad cane at home but cannot see it in the dark as it is black, therapy's is silver. Pt doffs 02 prior to ambulation. Pt ambulates with quad cane, dons 02, sits in recliner with all needs met, call light in reach. Education OT Patient Education: Correct positioning, Safety issues, Transfer techniques Teaching Recipient: Patient Teaching Methods: Demonstration, Discussion Response to Teaching: Verbalize Understanding, Return Demonstration OT Emergency Management Specialist Goals Emergency Management Specialist Goals Time Frame: Sep 26, 2020 Eating (QC): 6 Oral Hygiene (QC): 5 Toileting Hygiene (QC): 6 Shower/Bathe Self (QC): 4 Upper Body Dressing (QC): 5 Lower Body Dressing (QC): 4 On/Off Footwear (QC): 6 Additional Goals: 1-Demonstrate ADL Tasks, 2-Verbalize Understanding, 3-Improv eStrength/Pascual 1=Demonstrate adherence to instructed precautions during ADL tasks. 2=Patient will verbalize/demonstrate understanding of assistive devices/modifications for ADL. 3=Patient will improve strength/tolerance for activity to enable patient to p erform ADL's. OT Education/Plan Problem List/Assessment Assessment: Decreased Activ Tolerance, Impaired Coordination, Impaired I ADL's Discharge Recommendations Plan/Recommendations: Continue POC Therapy Discharge Recommendati: Intermittent Supervision, Home & Family Comment quad cane prior to d/c. Treatment Plan/Plan of Care Treatment,Training & Education: Yes Patient would benefit from OT for education, treatment and training to promote independence in ADL's, mobility, safety and/or upper extremity function for ADL's. Plan of Care: ADL Retraining, Functional Mobility, UE Funct Exercise/Act Treatment Duration: Sep 26, 2020 Frequency: 5 times per week Estimated Hrs Per Day: .25 hour per day Agreement: Yes Rehab Potential: Fair Time/GCodes Start Time: 10:26 Stop Time: 10:36 Total Time Billed (hr/min): 10 Billed Treatment Time 1, ADL (10) SALOMÓN SUMNER OTR Sep 22, 2020 10:47
--- NOTE | 2020-09-23 09:13 | Physician Query Clarification ---
PQ-CHF Specificity Admission Date: Sep 17, 2020 at 22:25 Discharge Date: Sep 22, 2020 at 13:28 Dr. Hernandez, The medical record reflects the following clinical scenario: History/Risk Factors: [list no more than 2] Clinical Findings: [list no more than 2] Treatment: [list no more than 2] Question: Can you further specify the acuity &/or type of CHF per the clinical indicators above? Please document a response in the Progress Notes or Discharge Summary. 1. Acuity: Acute, Chronic or Acute on Chronic 2. Type: Systolic, Diastolic or Systolic & Diastolic 3. Unspecified: CHF cannot be further specified regarding type or acuity 4. Other, with explanation of clinical findings 5. Clinically undetermined, no explanation for clinical findings Please remember a lack of response to the above will prompt a phone page by [facility] staff. In responding to this query, please exercise your independent professional judgment. The purpose of this communication is to more accurately reflect the complexity of your patients condition. The fact that a question is asked does not imply that any particular answer is desired or expected. Thank you for your timely response to this clarification. Requestors name: [ ] Phone # [ ] THIS PHYSICIAN QUERY FORM IS A PERMANENT PART OF THE MEDICAL RECORD JESUSITA CLIFFORD Sep 23, 2020 09:13
== END 2020-09-22 13:28 | disposition home health service (06) | DRG 246 ==
LOC: ER FS 19:13 → CSD 22:25
PROVIDERS: ADMIT Internal Medicine; ATTEND Internal Medicine
PROC: 027034Z Dilation of Coronary Artery, One Artery with Drug-eluting Intraluminal Device, Percutaneous Approach (ICD-10-PCS; principal; 2020-09-21)
PROC: 4A023N7 Measurement of Cardiac Sampling and Pressure, Left Heart, Percutaneous Approach (ICD-10-PCS; 2020-09-21)
PROC: B2151ZZ Fluoroscopy of Left Heart using Low Osmolar Contrast (ICD-10-PCS; 2020-09-21)
PROC: B2101ZZ Fluoroscopy of Single Coronary Artery using Low Osmolar Contrast (ICD-10-PCS; 2020-09-21)
DX: I21.4 Non-ST elevation (NSTEMI) myocardial infarction (principal); J96.01 Acute respiratory failure with hypoxia; I25.10 Atherosclerotic heart disease of native coronary artery without angina pectoris; J43.9 Emphysema, unspecified; E86.0 Dehydration; Z99.81 Dependence on supplemental oxygen; Z87.891 Personal history of nicotine dependence; Z20.822 Contact with and (suspected) exposure to COVID-19; Z88.0 Allergy status to penicillin
CPT/HCPCS: 36415; 71045; 80053; 82805; 83605; 83880; 84484; 85007; 85025; 85027; 85347; 85610; 85730; 86141; 87040; 87635; 93005; 93306; 93458; 94640; 94760; 94761

== ENCOUNTER → 2021-05-12 | Outpatient (CLI) | payer MEDICARE ==
[~2021-05-12] MED LIST: ALBUTEROL; ASPI-1238 PO; ASPI-808 PO; CALC-250 PO; CLOP75TA28 PO; COGNIUM PO; CYAN250T3 PO; FLUT1BLS IH; GBPN600T PO; LISI-729 PO; MAGN400T39 PO; MEMORY VITAMIN PO; OMEP20TA7 PO; POTA10TA36 PO; PRED10TA22 PO; RT-ALBUINH INH; SAW/1TAB2 PO; SAW450CA7 PO
--- NOTE | 2021-05-12 12:13 | Diagnostic Imaging Report ---
PROCEDURE: CT head without contrast. TECHNIQUE: Multiple contiguous axial images were obtained through the brain without the use of intravenous contrast. Auto Exposure Controls were utilized during the CT exam to meet ALARA standards for radiation dose reduction. INDICATION: Dizziness. No prior studies are available for comparison. Ventricles and sulci are appropriate for the patient's age. There is moderate periventricular hypodensity noted consistent with changes of chronic microvascular ischemia. There is no sulcal effacement or midline shift. No acute intra-axial or extra-axial hemorrhage is detected. Cisterns are patent. Visualized paranasal sinuses are clear. IMPRESSION: Chronic changes. No acute intracranial process is detected. Dictated by: Dictated on workstation # [id number]
== END ==
LOC: RAD FS 10:27
PROVIDERS: ATTEND Family Medicine
DX: R42 Dizziness and giddiness (principal)
CPT/HCPCS: 70450

== ENCOUNTER → 2021-08-23 | Outpatient (CLI) | payer MEDICARE ==
[~2021-08-23] VITALS: Ht 182 cm; Wt 86.0 kg
[~2021-08-23] MED LIST changes: +CATHETER FLUSH 10 ML SYR IV PRN; -LISI-729 PO; +LISI5TAB20 PO; -POTA10TA36 PO; +POTA10TA37 PO; +REGADENOSON 0.4 MG/5 ML SYR (LEXISCAN) IV ONE
[2021-08-23 09:23] VITALS: BP 147/75
--- NOTE | 2021-08-23 13:56 | Cardiology Stress Test Report ---
Stress Test Report Date of Procedure/Referring: Date of Procedure: Aug 23, 2021 PCP Dayami Hernandez MD Admitting Physician Corona Vora MD Indications: CP Baseline Heart Rate: 83 Baseline Blood Pressure: Blood Pressure Systolic: 147 Blood Pressure Diastolic: 75 Baseline Vitals Vital Signs Date Time Temp Pulse Resp B/P (MAP) Pulse Ox O2 Delivery O2 Flow Rate FiO2 08/23/21 09:23 84 147/75 (99) Room Air Baseline EKG: Baseline EKG: NSR, V bigemini Summary After explaining the procedure to the patient, he signed a consent and then brought to the stress nuclear laboratory. Patient received 0.4 mg Lexiscan for stress test, ECG, heart rate and blood pressure were monitored continuously. Resting and stress dose of radio tracer were injected, imaging was acquired and reviewed in short axis, horizontal long axis and vertical long axis views. TID: 0.97 SSS: 9 SDS: 6 EF: 50 1. Normal sinus rhythm with ventricular bigeminy 2. Diaphragmatic attenuation increase intestinal uptake with reversible ischemia involving the inferior wall and inferoapical segment and inferolateral wall. 3. Normal left ventricular size, EF 50% DAYAMI HERNANDEZ MD Aug 23, 2021 13:55
== END ==
LOC: CARD 08:30
PROVIDERS: ATTEND Internal Medicine Cardiovascular Disease
DX: I25.10 Atherosclerotic heart disease of native coronary artery without angina pectoris (principal); I10 Essential (primary) hypertension
CPT/HCPCS: 78452; 93017; A9502

== ENCOUNTER 2021-09-06 08:44 | Day surgery (SDC) | payer MEDICARE ==
[~2021-09-06] VITALS: Ht 180 cm; Wt 90.0 kg
[2021-09-06] VITALS (22 sets, daily range): BP systolic 92–164; BP diastolic 56–116
[~2021-09-06 08:44] MED LIST changes: -CATHETER FLUSH 10 ML SYR IV PRN; -REGADENOSON 0.4 MG/5 ML SYR (LEXISCAN) IV ONE
[2021-09-06] MEDS ORDERED: HEParin (CATH LAB) 2,000 ML IV ONE (08:57)
[2021-09-06] MEDS ORDERED: LIDOCAINE 1% INJ 20 ML VIAL ONE (08:57)
[2021-09-06] MEDS ORDERED: NS IV 1000 ML 1,000 ML ONE (08:57)
[2021-09-06] MEDS ORDERED: NS IV 1000 ML 1,000 ML IV SCH ×2 (09:00→15:00)
--- NOTE | 2021-09-06 09:57 | Diagnostic Imaging Report ---
INDICATION: Chest pain, coronary artery disease. TIME OF EXAM: 9:29 AM Comparison is made prior chest 09/17/2020. FINDINGS: The heart size is normal. The pulmonary vascularity is unremarkable. The lungs are clear. No infiltrate, effusion or pneumothorax is detected. IMPRESSION: No acute cardiopulmonary process is detected. Dictated by: Dictated on workstation # [id number]
[2021-09-06 09:58] LABS: HEMOGLOBIN 13.4 g/dL (13.3-17.7)
[2021-09-06 10:00] LABS: MEAN PLATELET VOLUME 10.6 fL (9.0-12.2); WHITE BLOOD COUNT 6.3 10^3/uL (4.3-11.0)
[2021-09-06 10:04] LABS: BILIRUBIN,URINE NEGATIVE (NEGATIVE); CLARITY,URINE CLEAR; COLOR,URINE YELLOW; GLUCOSE, URINE (UA) NEGATIVE (NEGATIVE); KETONES,URINE NEGATIVE (NEGATIVE); LEUKOCYTE ESTERASE ,URINE 1+ (NEGATIVE); NITRITE,URINE NEGATIVE (NEGATIVE); PROTEIN,URINE NEGATIVE (NEGATIVE)
[2021-09-06 10:14] LABS: PROTHROMBIN TIME PATIENT 13.9 SEC (12.2-14.7)
[2021-09-06 10:23] LABS: ALBUMIN 3.6 GM/DL (3.2-4.5); BILIRUBIN,TOTAL 0.9 MG/DL (0.1-1.0); CALCIUM 9.2 MG/DL (8.5-10.1); CREATININE SERUM 1.1 MG/DL (0.60-1.30); POTASSIUM 4.1 MMOL/L (3.6-5.0); TOTAL PROTEIN 6.5 GM/DL (6.4-8.2)
[2021-09-06 10:26] LABS: BACTERIA,URINE NEGATIVE /HPF; RBC,URINE 0-2 /HPF; SQUAMOUS EPITHELIAL CELL,UR RARE /HPF
[2021-09-06] MEDS ORDERED: VERAPAMIL 5 MG/2 ML (CALAN) VIAL IV ONE (13:30)
[2021-09-06] MEDS ORDERED: MIDAZOLAM 5 MG/5 ML (VERSED) VIAL ONE (13:31)
[2021-09-06] MEDS ORDERED: fentaNYL INJ 100 MCG/2 ML AMP ONE (13:31)
[2021-09-06] MEDS ORDERED: HEParin 1000 UNIT/ML (10ML VIAL) FOR BOLUS ONE (13:31)
[2021-09-06] MEDS ORDERED: NITRO DRIP 25000 MCG/D5W 250 ML IV ONE (13:34)
[2021-09-06] MEDS ORDERED: CLOPIDOGREL 300 MG (PLAVIX) TABLET PO ONE (14:57)
[2021-09-06] MEDS ORDERED: ASPIRIN 325 MG (5 GR) TABLET ONE (14:57)
--- NOTE | 2021-09-06 14:59 | Discharge Inst-Post CATH ---
Discharge Inst-CATH/EP Problems Reviewed?: Yes Post Cardiac Cath/EP D/C Inst Follow Up/Plan Appointment with Dr. Hernandez in 2 weeks <b>CARDIAC CATH/EP PROCEDURE DISCHARGE INSTRUCTIONS</b> ACTIVITY * Go Home directly and rest. * Limit activity of the leg (or wrist if it was used) for 7 days including aerobics, swimming, jogging, bicycling, etc. * Restrict stair-climbing for 7 days if possible, if not, climb up with your non-cath leg, then bring together on the same step. * Avoid lifting, pushing, pulling or excessive movement of the affected extremity for 7 days. * Customary sexual activity may be resumed after 2 days-use caution not to use a position that strains or causes pain to the affected extremity. * No driving for 24 hours. * NO SMOKING. * Avoid straining for bowel movements for 7 days. * Gentle walking on level ground is allowed. * Returning to work will depend on the type of procedure and the results. Your doctor will discuss this with you. CALL YOUR DOCTOR FOR ANY OF THE FOLLOWING: *If bleeding from the puncture site occurs- Apply gentle pressure to site with clean cloth and call your doctor or EMS. * If a knot or lump forms under the skin, increases in size, or causes pain. * If bruising appears to be worsening or moving further down your leg instead of disappearing. * Temperature above 101 F. CARE OF YOUR GROIN INCISION; * Bruising or purple discoloration of the skin near the puncture site is common. * You may shower only, no bathtub bathing for 5 days. Be careful to avoid slipping as your leg may feel stiff. * If a closure device was used on your femoral artery, please see the attached guide regarding care of the device and your leg. * Leave dressing on FOR 24 hours. CARE OF YOUR WRIST INCISION; * Bruising or purple discoloration of the skin near the puncture site is common. * You may shower. * DO NOT submerge wrist. * Leave dressing on FOR 24 hours. DAYAMI HERNANDEZ MD Sep 06, 2021 14:59
--- NOTE | 2021-09-06 15:08 | Cardiac Cath Report ---
Cardiac Cath Report Physician (s)/Terminal Computer Operator (s) Physician DAYAMI MCCABE MD Pre-Procedure Diagnosis Pre-Procedure Diagnosis: Coronary artery disease Post-Procedure Note Procedure Start Date: Sep 06, 2021 Name of Procedure: Coronary angiogram Stenting to the right coronary artery Findings/Procedure Note PROCEDURE NOTE: 75-year-old gentleman with history of coronary artery disease, has been having chest pain or shortness of breath, abnormal stress test, scheduled for cardiac catheterization possible PTCA. After explaining the procedure to the patient, all pros and cons were explained, all questions were answered. The patient signed the consent and then he was placed on the cardiac catheterization laboratory. Groin was prepped SL fashion local anesthesia was used. Sheath placed in the right radial artery, very difficult stick, multiple attempts then I was able to place a sheath in the right radial artery, patient continued to move his arm was uncooperative probably due to the sedation. [place] catheter advanced to the right and left coronary system and angiogram was done. Patient was given a total of 6000 units of heparin, [place] right guide was advanced to the right coronary artery and BMW wire was advanced with difficulty and parked distally then I proceeded with primary stenting using jimbo point stent 2.5 x 18 mm expanded to 2.75 with excellent results. At the end of the procedure the sheath was removed. Vascular band was used FINDINGS: Hemodynamics LV was not measured, did not cross the aortic valve Aorta 137/65 mean of 87 ANATOMY: Left Main is free of obstructive disease Left Anterior Descending has mild to moderate disease at the midportion severe disease distally at the apex Left Circumflex has mild disease proximally Right Coronary Artery has patent stent at the midportion with severe stenosis distal to the stent, successful primary stenting using jimbo point stent 2.5 x 18 mm expanded to 2.75 mm with excellent results CONCLUSION: 1. Severe in-stent restenosis and distal to the stent in the right coronary artery with successful primary stenting using jimbo point stent 2.5 x 18 mm expanded to 2.75 with excellent results 2. Mild to moderate disease at the mid LAD, severe disease at the distal LAD at the apex level, the artery is very small artery. 3. Otherwise mild to moderate disease DISCUSSION AND RECOMMENDATION: Continue with aspirin and Plavix, maximize medical therapy Anesthesia Type: Conscious Sedation Estimated blood loss (mL): 30 ml Contrast Amount: 100 ml Total Radiation Dose: 468 mGy Post-Procedure Diagnosis Post-operative diagnosis: Chest pain Coronary artery disease Hypertension Hyperlipidemia DAYAMI MCCABE MD Sep 06, 2021 15:08
[2021-09-06] MEDS ORDERED: meTOprolol 5 MG/5 ML (LOPRESSOR) VIAL IV NR (16:00)
[2021-09-07] VITALS: BP 136/92
[2021-09-07 01:00] VITALS: BP 127/75
[2021-09-07 02:00] VITALS: BP 123/75
[2021-09-07 04:00] VITALS: BP 118/105
[2021-09-07 08:00] VITALS: BP 157/85
--- NOTE | 2021-09-07 09:02 | Cardiology Progress Note ---
Subjective Date Seen by Provider: Sep 07, 2021 Time Seen by Provider: 09:01 Subjective/Events-last exam Patient was seen at bedside, laying down comfortably, his wrist is healed well. No active bleeding. No headache was reported today. Review of Systems General: No Chills, No Night Sweats, No Fatigue, No Malaise, No Appetite, No Other HEENT: No Head Aches, No Visual Changes, No Eye Pain, No Ear Pain, No Dysphasia, No Sinus Congestion, No Post Nasal Drip, No Sore Throat, No Other Pulmonary: No Dyspnea, No Cough, No Pleuritic Chest Pain, No Other Cardiovascular: No: Chest Pain, Palpitations, Orthopnea, Paroxysmal Noc. Dyspnea, Edema, Lt Headedness, Other Objective-Cardiology Exam Last Set of Vital Signs Vital Signs 09/07/21 08:00 Temp 36.2 Pulse 84 Resp 16 B/P (MAP) 157/85 (109) Pulse Ox 100 O2 Delivery Nasal Cannula O2 Flow Rate 6.00 General: Alert, Oriented X3, Cooperative HEENT: Atraumatic, PERRLA Neck: Supple, No JVD, No Thyromegaly Lungs: Clear to Auscultation, Normal Air Movement Heart: Regular Rate, Normal S1, Normal S2, No Murmurs Abdomen: Normal Bowel Sounds, Soft, No Tenderness, No Hepatosplenomegaly, No Masses Extremities: No Clubbing, No Cyanosis, No Edema, Normal Pulses, No Tenderness/Swelling Skin: No Rashes, No Breakdown, No Significant Lesion Neuro: Normal Gait, Normal Speech, Strength at 5/5 X4 Ext, Normal Tone, Sensation Intact Psych/Mental Status: Mental Status NL, Mood NL Results Lab Laboratory Tests 09/06/21 09:35 A/P-Cardiology Admission Diagnosis Coronary artery disease Hypertension Hyperlipidemia Assessment/Plan Coronary artery disease status post cardiac catheterization and stenting of the right coronary artery Patient had mild oozing of blood from the catheter site, manual pressure applied No active bleeding was seen today. Has been doing well Hypertension, controlled monitor blood pressure Hyperlipidemia, monitor lipids Patient was educated on taking aspirin and Plavix for the next 6 months. Planning for discharge today DAYAMI MCCABE MD Sep 07, 2021 09:02
== END 2021-09-07 09:31 | disposition home or self-care (01) ==
LOC: CATH 08:44 → CSD 15:18 → CATH 09-07 09:31
PROVIDERS: ATTEND Internal Medicine Cardiovascular Disease
DX: I25.10 Atherosclerotic heart disease of native coronary artery without angina pectoris (principal); I10 Essential (primary) hypertension; I25.2 Old myocardial infarction; I25.9 Chronic ischemic heart disease, unspecified; I49.3 Ventricular premature depolarization; J44.9 Chronic obstructive pulmonary disease, unspecified; G62.9 Polyneuropathy, unspecified; E78.2 Mixed hyperlipidemia; I65.23 Occlusion and stenosis of bilateral carotid arteries; Z79.899 Other long term (current) drug therapy; Z79.82 Long term (current) use of aspirin; Z79.02 Long term (current) use of antithrombotics/antiplatelets; Z87.891 Personal history of nicotine dependence; Z95.5 Presence of coronary angioplasty implant and graft
CPT/HCPCS: 71045; 80053; 80061; 81000; 85027; 85610; 85730; 87081; 87088; 93454; C1769 ×2; C1874; C1887; C1894; C9600; 36415